=== PATIENT | male | born 1960 | race Caucasian/White ===

== ENCOUNTER 2020-09-27 20:58 | Emergency (ER) | payer MEDICAID ==
[~2020-09-27] VITALS: Ht 165.1 cm; Wt 77.1 kg
[2020-09-27 21:05] VITALS: BP 167/140
--- NOTE | 2020-09-27 21:10 | NUR ---
To ED bed 03.
--- NOTE | 2020-09-27 21:45 | NUR ---
59/M C/O LOWER BACK PAIN AND HIGH BLOOD PRESSURE FOR 3 DAYS. PT DENIES ANY HEADACHE, CHEST PAIN OR DIZZINESS. PT USES WALKER FOR AMBULATION AND HAS A R UPPER CHEST DIALYSIS PORT. PT CURRENTLY TAKES LABETALOL TID AND LISINOPRIL OD FOR BLOOD PRESSURE CONTROL. hx: ESRD on HD(tue,alexander,sat), HTN, DM NKDA
--- NOTE | 2020-09-27 21:45 | NUR ---
DR DE SOUZA AT BEDSIDE EXAMINING PATIENT
--- NOTE | 2020-09-27 22:32 | NUR ---
radiology at bedside
--- NOTE | 2020-09-27 22:34 | NUR ---
Leela freed in [facility] - 09/27/20 at 2234 by NAE X-Ray at bedside.
--- NOTE | 2020-09-27 22:36 | NUR ---
EKG PERFORMED AT BEDSIDE. EKG READS SINUS RHYTHM @ 78
--- NOTE | 2020-09-27 22:38 | NUR ---
20 G IV PLACED IN RT A/C - BLOOD LABS COLLECTED AND HANDED TO ANISHA FROM LAB.
[2020-09-27 22:47] LABS: BASOPHILS # (AUTO) 0.1 K/uL (0.00-0.22); BASOPHILS % (AUTO) 1.1 % (0.0-2.0); EOSINOPHILS # (AUTO) 0.2 K/uL (0-0.4); EOSINOPHILS % (AUTO) 2.3 % (0.0-4.0); HEMATOCRIT 31.2 % (36-52); HEMOGLOBIN 10.3 g/dL (12.0-18.0); LYMPHOCYTES # (AUTO) 1.8 K/uL (2.0-11.5); LYMPHOCYTES % (AUTO) 27.3 % (20.5-51.1); MEAN CORPUSCULAR HEMOGLOBIN 28 pg (27-31); MEAN CORPUSCULAR HGB CONC 33 g/dL (33-37); MEAN CORPUSCULAR VOLUME 84.1 fL (80-94); MONOCYTES # (AUTO) 0.6 K/uL (0.8-1.0); MONOCYTES % (AUTO) 8.9 % (1.7-9.3); NEUTROPHILS # (AUTO) 3.9 K/uL (1.8-7.7); NEUTROPHILS % (AUTO) 60.4 % (42.2-75.2); PLATELET COUNT (AUTO) 189 K/uL (140-450); RED BLOOD CELL COUNT(AUTO) 3.71 MIL/uL (4.20-6.10); RED CELL DISTRIBUTION WIDTH 16.7 % (11.6-13.7); WHITE BLOOD COUNT (AUTO) 6.5 K/uL (4.8-10.8)
--- NOTE | 2020-09-27 23:00 | NUR ---
MADE AWARE OF PT BP. NO ORDERS RECEIVED FOR NOW.
[2020-09-27 23:06] LABS: PROTHROMBIN TIME 9.9 secs (10.8-13.4)
[2020-09-27 23:17] LABS: ALBUMIN 3.5 g/dL (3.4-5.0); ANION GAP 16.8 (8-16); CARBON DIOXIDE 26.5 mmol/L (21-32); POTASSIUM 4.3 mmol/L (3.5-5.1); TOTAL BILIRUBIN 0.6 mg/dL (0.0-1.0)
[2020-09-27 23:18] LABS: CREATININE 9.5 mg/dL (0.6-1.3)
[2020-09-28] MEDS ORDERED: ACETAMINOPHEN EXTRA STRENGTH 500 MG TAB PO ONE (00:20)
[2020-09-28] MEDS ORDERED: LID5T TP (00:52)
[2020-09-28] MEDS ORDERED: ACET-10509 PO (00:52)
--- NOTE | 2020-09-28 01:10 | NUR ---
REPEAT EKG PERFORMED AT BEDSIDE. EKG READS SINUS RHYTHM @ 73
[2020-09-28 01:30] VITALS: BP 219/98
--- NOTE | 2020-09-28 01:30 | NUR ---
Patient discharged with v/s stable. Written and verbal after care instructions given and explained. Patient alert, oriented and verbalized understanding of instructions. Ambulatory with to car. All questions addressed prior to discharge. ID band AND IV ACCESS removed. Patient advised to follow up with PMD. Rx of LIDODERM PATCH, TYLENOL given. Patient educated on indication of medication including possible reaction and side effects. Opportunity to ask questions provided and answered.
== END 2020-09-28 01:30 | disposition home or self-care (01) ==
LOC: MED 20:58
DX: M54.9 Dorsalgia, unspecified (principal); E11.22 Type 2 diabetes mellitus with diabetic chronic kidney disease; I12.0 Hypertensive chronic kidney disease with stage 5 chronic kidney disease or end stage renal disease; N18.6 End stage renal disease; Z99.2 Dependence on renal dialysis; Z79.899 Other long term (current) drug therapy
CPT/HCPCS: 36415; 71045; 80053; 83735; 83880; 84484; 85025; 85610; 85730; 93005; 99291

== ENCOUNTER 2021-04-19 13:14 | Inpatient (IN) | payer MEDICAID, SELFPAY ==
[~2021-04-19] VITALS: Ht 167.6 cm; Wt 81.6 kg
[~2021-04-19 13:14] MED LIST: ACET-10509 PO; LID5T TP
[2021-04-19 14:28] VITALS: BP 141/73
--- NOTE | 2021-04-19 14:53 | NUR ---
02sat 92 % at this time. o2 canula2 lpm.
--- NOTE | 2021-04-19 15:46 | NUR ---
ECTRO SWAB, PCR SWAB, AND FLU SWAB COLLECTED, SENT TO LAB WITH [employer].
[2021-04-19 15:57] LABS: BASOPHILS # (AUTO) 0.1 K/uL (0.00-0.22); BASOPHILS % (AUTO) 1.1 % (0.0-2.0); EOSINOPHILS # (AUTO) 0.1 K/uL (0-0.4); EOSINOPHILS % (AUTO) 1.9 % (0.0-4.0); HEMOGLOBIN 9.7 g/dL (12.0-18.0); LYMPHOCYTES # (AUTO) 0.9 K/uL (2.0-11.5); LYMPHOCYTES % (AUTO) 15.5 % (20.5-51.1); MEAN CORPUSCULAR HEMOGLOBIN 28 pg (27-31); MEAN CORPUSCULAR HGB CONC 33 g/dL (33-37); MEAN CORPUSCULAR VOLUME 86.2 fL (80-94); MONOCYTES # (AUTO) 0.3 K/uL (0.8-1.0); MONOCYTES % (AUTO) 5.1 % (1.7-9.3); NEUTROPHILS # (AUTO) 4.5 K/uL (1.8-7.7); NEUTROPHILS % (AUTO) 76.4 % (42.2-75.2); PLATELET COUNT (AUTO) 153 K/uL (140-450); RED BLOOD CELL COUNT(AUTO) 3.48 MIL/uL (4.20-6.10); RED CELL DISTRIBUTION WIDTH 16.4 % (11.6-13.7); WHITE BLOOD COUNT (AUTO) 5.9 K/uL (4.8-10.8)
[2021-04-19 16:59] LABS: ANION GAP 23.3 (8-16); TOTAL BILIRUBIN 0.9 mg/dL (0.0-1.0)
[2021-04-19 17:44] LABS: CREATININE 13.9 mg/dL (0.6-1.3); POTASSIUM 7.3 mmol/L (3.5-5.1)
[2021-04-19] MEDS ORDERED: INSULIN REGULAR, HUMAN 100 UNIT/ML VIAL SUBQ ONE (17:45)
[2021-04-19] MEDS ORDERED: FUROSEMIDE 100 MG/10 ML VIAL IVP ONE (17:45)
[2021-04-19] MEDS ORDERED: DEXTROSE 50% 50 ML SYR IVP ONE (17:45)
[2021-04-19] MEDS ORDERED: ALBUTEROL HFA MDI 90 MCG/ACTUATION 8 GM INH ONE (17:45)
--- NOTE | 2021-04-19 17:47 | NUR ---
PER DR. MARRUFO PATIENT IS RECEIVE NEXT BED AVAILABLE
[2021-04-19] MEDS ORDERED: CALCIUM GLUCONATE 10% 1000 MG/10 ML VIAL IVP ONE (17:50)
[2021-04-19 18:15] LABS: MAGNESIUM 3.6 mg/dL (1.8-2.4)
--- NOTE | 2021-04-19 18:15 | NUR ---
PT MOVED FROM TENT 02 TO BED 13
[2021-04-19 18:17] LABS: PHOSPHORUS 10.1 mg/dL (2.5-4.9)
[2021-04-19] MEDS ORDERED: CALCIUM CHLORIDE 10% 100 MG/ML SYR IVP ONE (18:36)
--- NOTE | 2021-04-19 18:43 | NUR ---
60/M PRESENTS TO ED WITH C/O WORSENING COUGH, SOB, BODY ACHES, NAUSEA, CP AND FATIGUE X2 DAYS WORSENING TODAY. PATIENT STATES HE RECEIVES HEMODIALYSIS SUNDAY, SUNDAY AND SUNDAY BUT STATES HE MISSED HIS DIALYSIS TODAY DUE TO NOT FEELING WELL. PATIENTS FAMILY STATES THEY WERE MONITORING PATIENTS O2 AT HOME AND STATE HIS OXYGEN WOULD DROPS TO THE 60S WHEN MOVING AROUND. UPON ARRIVAL TO ED PATIENTS OXYGEN 88%, DENIES RECENT SICK CONTACTS. PATIENT REPORTS 5/10 PRESSURE LIKE CHEST PAIN, DENIES, N/V/D, SORE THROAT AT THIS TIME. PATIENT PLACE ON 2L NASAL CANULA, DR. MARRUFO AWARE OF PATIENT.
--- NOTE | 2021-04-19 20:59 | NUR ---
SPOKE WITH DIALYSIS NURSE CHERI, STATES SHE WILL LIKE TO BE CONTACTED WHEN PATIENT IS TX TO ICU OR IN A ROOM CAPABLE FOR DIALYSIS.
--- NOTE | 2021-04-19 21:12 | NUR ---
PT MOVED TO ER BED 1
--- NOTE | 2021-04-19 21:19 | NUR ---
NOTIFIED DIALYSIS NURSE CHERI THAT PATIENT IS NOW IN ER ROOM 1
[2021-04-19] MEDS ORDERED: SODIUM ZIRCONIUM CYCLOSILICATE 10 GM POWD.PACK PO SCH (21:25)
--- NOTE | 2021-04-19 22:03 | NUR ---
ASSUMED CARE AT THIS TIME.
--- NOTE | 2021-04-19 22:06 | NUR ---
PT SEEN LAYING SUPINE IN BED. VISIBLE CHEST RISE AND FALL NOTED. NAD. O2 SAT RANGING BETWEEN 95-98% ON 2L NC. NO INCREASED WORK OF BREATHING. ALL NEEDS MET AT THIS TIME. WILL CONTINUE TO MONITOR.
--- NOTE | 2021-04-19 22:45 | NUR ---
KG RAMIREZ AT BEDSIDE TO START STAT HEMODIALYSIS.
--- NOTE | 2021-04-20 06:00 | NUR ---
pt c/o general body pain. will reach out to admit physcian for PRN
--- NOTE | 2021-04-20 06:01 | NUR ---
reached out to Dr. Barclay for PRN pain medication and now a/w response.
--- NOTE | 2021-04-20 07:22 | NUR ---
report given to KG mariee. transfer of care at this time.
[2021-04-20 07:36] LABS: BASOPHILS # (AUTO) 0.1 K/uL (0.00-0.22); BASOPHILS % (AUTO) 0.9 % (0.0-2.0); EOSINOPHILS # (AUTO) 0.1 K/uL (0-0.4); EOSINOPHILS % (AUTO) 2.2 % (0.0-4.0); HEMATOCRIT 32.3 % (36-52); HEMOGLOBIN 10.7 g/dL (12.0-18.0); LYMPHOCYTES # (AUTO) 1.2 K/uL (2.0-11.5); LYMPHOCYTES % (AUTO) 19.1 % (20.5-51.1); MEAN CORPUSCULAR HEMOGLOBIN 28 pg (27-31); MEAN CORPUSCULAR HGB CONC 33 g/dL (33-37); MEAN CORPUSCULAR VOLUME 85.2 fL (80-94); MONOCYTES # (AUTO) 0.4 K/uL (0.8-1.0); MONOCYTES % (AUTO) 5.9 % (1.7-9.3); NEUTROPHILS # (AUTO) 4.4 K/uL (1.8-7.7); NEUTROPHILS % (AUTO) 71.9 % (42.2-75.2); PLATELET COUNT (AUTO) 168 K/uL (140-450); WHITE BLOOD COUNT (AUTO) 6.2 K/uL (4.8-10.8)
[2021-04-20 07:51] LABS: ANION GAP 18.7 (8-16); CARBON DIOXIDE 22.6 mmol/L (21-32); POTASSIUM 4.3 mmol/L (3.5-5.1)
--- NOTE | 2021-04-20 08:00 | NUR ---
[facility] BUN/NEON SIGN MAKER REPORTED TO MD CASTREJON AT THIS TIME. PT IS ESRD AND UNDERGOES HD AT THIS TIME.
[2021-04-20 08:01] LABS: CREATININE 9.4 mg/dL (0.6-1.3)
--- NOTE | 2021-04-20 08:39 | NUR ---
CALLED ERMD, PT IS HYPERTENSIVE AND HAS GEN BODY PAIN AT THIS TIME. NEW ORDERS NOTED AND CARRIED OUT.
[2021-04-20] MEDS ORDERED: MORPHINE SULFATE 2 MG/ML SYR IVP PRN ×2 (08:45→09:00)
[2021-04-20] MEDS ORDERED: MORPHINE SULFATE 4 MG/ML SYR IVP PRN (08:45)
[2021-04-20] MEDS ORDERED: hydrALAZINE 20 MG/ML VIAL IVP PRN ×2 (08:45→11:35)
[2021-04-20] MEDS ORDERED: hydrALAZINE 20 MG/ML VIAL ONE (08:57)
[2021-04-20] MEDS ORDERED: MAG SULF 2000 MG/WATER PREMIX 50 ML IV PRN (09:00)
[2021-04-20] MEDS ORDERED: ZOLPIDEM 5 MG TAB PO PRN (09:00)
[2021-04-20] MEDS ORDERED: HYDROcodone/APAP 5/325 MG 1 TAB TAB PO PRN (09:00)
[2021-04-20] MEDS ORDERED: LORazepam 2 MG/ML VIAL IM/IVP PRN (09:00)
[2021-04-20] MEDS ORDERED: ACETAMINOPHEN 325 MG TAB PO PRN (09:00)
[2021-04-20] MEDS ORDERED: ONDANSETRON 4 MG/2 ML VIAL IM/IVP PRN (09:00)
[2021-04-20 09:37] LABS: CHOL/HDL RATIO 2.1 (1-4.5); MAGNESIUM 2.8 mg/dL (1.8-2.4); PHOSPHORUS 6.6 mg/dL (2.5-4.9); THYROID STIMULATING HORMONE 0.72 uIU/mL (0.34-3.74)
[2021-04-20 09:40] LABS: PROTHROMBIN TIME 10.4 secs (10.8-13.4)
--- NOTE | 2021-04-20 10:10 | NUR ---
DR. GRACE AT BEDSIDE, PROFESSIONAL CASTER
[2021-04-20] MEDS ORDERED: DOCUSATE 100 MG/10 ML UDC PO PRN (10:30)
[2021-04-20] MEDS ORDERED: POTASSIUM CHLORIDE 20% 40 MEQ/15 ML UDC PO PRN (10:30)
--- NOTE | 2021-04-20 11:01 | NUR ---
PT COMPLAINING OF LEG PAIN. DR. DOE MADE AWARE, SAID WILL CHECK UP ON PT.
[2021-04-20] MEDS: NIFEdipine 60 MG TABER PO SCH (12:14)
[2021-04-20] MEDS: CALCIUM ACETATE 667 MG TAB PO SCH ×2 (12:15→18:01)
--- NOTE | 2021-04-20 12:57 | NUR ---
PATIENT ASLEEP IN BED. NO SIGNS OF DISTESS. WILL CONTINUE TO MONITOR.
--- NOTE | 2021-04-20 15:09 | NUR ---
blood pressure 183/83 and hr 76. hydralazine given per md order.
--- NOTE | 2021-04-20 15:55 | NUR ---
PATIENT HAS BEEN SCREENED AND CATEGORIZED MODERATE NUTRITION RISK. PATIENT WILL BE SEEN WITHIN 3-5 DAYS OF ADMISSION. / JAN CALDERON RD
--- NOTE | 2021-04-20 19:37 | NUR ---
REPORT GIVEN TO ANA SAUL. TRANSFER OF CARE DONE AT THIS TIME.
--- NOTE | 2021-04-20 19:45 | NUR ---
SITTING AT SIDE OF BED EATING DIET TRAY
--- NOTE | 2021-04-20 22:00 | NUR ---
RESTING IN BED WITH EYES CLOSED, RESPIRATIONS REGULAR AND UNLABORED.
[2021-04-21] MEDS ORDERED: DEXTROSE 50% 50 ML SYR IVP PRN (01:50)
[2021-04-21] MEDS ORDERED: INSULIN LISPRO SLIDING SCALE 100 UNITS/ML VIAL SUBQ PRN (01:50)
--- NOTE | 2021-04-21 02:00 | NUR ---
HAS BEEN AWAKE WITHOUT COMPLAINTS. SITTING AT SIDE OF BED TO VOID
--- NOTE | 2021-04-21 06:00 | NUR ---
AWAKE, HAS BEEN RESTING WITH EYES CLOSED. RESPIRATIONS REGULAR AND UNLABORED
[2021-04-21] MEDS: BLOOD GLUCOSE MONITORING 1 DEV DEV FS SCH ×4 (07:30→21:15)
--- NOTE | 2021-04-21 07:30 | NUR ---
REPORT RECEIVED FROM ANA SAUL FOR CONTINUITY OF CARE. PT IS A&OX4. ON 2L NASAL CANNULA. IV SITE OUT, CATHETER INTACT, GAUZE PLACED. SKIN WARM AND DRY, INTACT. WILL CONTINUE TO MONITOR.
[2021-04-21 08:23] LABS: BASOPHILS # (AUTO) 0.1 K/uL (0.00-0.22); BASOPHILS % (AUTO) 1.1 % (0.0-2.0); EOSINOPHILS # (AUTO) 0.1 K/uL (0-0.4); EOSINOPHILS % (AUTO) 2.3 % (0.0-4.0); HEMATOCRIT 30.3 % (36-52); HEMOGLOBIN 9.9 g/dL (12.0-18.0); LYMPHOCYTES # (AUTO) 1.3 K/uL (2.0-11.5); LYMPHOCYTES % (AUTO) 23.4 % (20.5-51.1); MEAN CORPUSCULAR HEMOGLOBIN 28 pg (27-31); MEAN CORPUSCULAR HGB CONC 33 g/dL (33-37); MEAN CORPUSCULAR VOLUME 86.2 fL (80-94); MONOCYTES # (AUTO) 0.5 K/uL (0.8-1.0); MONOCYTES % (AUTO) 8.5 % (1.7-9.3); NEUTROPHILS # (AUTO) 3.5 K/uL (1.8-7.7); NEUTROPHILS % (AUTO) 64.7 % (42.2-75.2); PLATELET COUNT (AUTO) 130 K/uL (140-450); RED BLOOD CELL COUNT(AUTO) 3.52 MIL/uL (4.20-6.10); RED CELL DISTRIBUTION WIDTH 16.3 % (11.6-13.7); WHITE BLOOD COUNT (AUTO) 5.4 K/uL (4.8-10.8)
[2021-04-21 09:07] LABS: T4 (THYROXINE) 7.3 ug/dL (4.5-12.0)
[2021-04-21 09:18] LABS: ANION GAP 21.3 (8-16); CARBON DIOXIDE 22.2 mmol/L (21-32); POTASSIUM 5.5 mmol/L (3.5-5.1)
[2021-04-21] MEDS: CALCIUM ACETATE 667 MG TAB PO SCH ×3 (09:26→17:31)
[2021-04-21] MEDS: NIFEdipine 60 MG TABER PO SCH (09:27)
--- NOTE | 2021-04-21 09:30 | NUR ---
PT EATING BREAKFAST TRAY
[2021-04-21 09:47] LABS: CREATININE 11.5 mg/dL (0.6-1.3)
[2021-04-21 10:04] LABS: PHOSPHORUS 9.2 mg/dL (2.5-4.9)
--- NOTE | 2021-04-21 12:40 | NUR ---
DR ELLIOTT AT BEDSIDE EXAMINING PT
--- NOTE | 2021-04-21 13:30 | NUR ---
PT EATING LUNCH TRAY
--- NOTE | 2021-04-21 15:49 | NUR ---
DIALYSIS NURSE AT BEDSIDE
--- NOTE | 2021-04-21 18:12 | NUR ---
PT PROVIDED WITH DINNER TRAY
--- NOTE | 2021-04-21 19:13 | NUR ---
PER HEAD OPERATOR, 1000 ML OUTPUT.
--- NOTE | 2021-04-21 19:24 | NUR ---
Pt report given to ANA SAUL. Transfer of care at this time.
--- NOTE | 2021-04-21 19:45 | NUR ---
AWAKE, SITTING ON SIDE OF BED. ATE 100% OF DIET TRAY
--- NOTE | 2021-04-21 22:00 | NUR ---
AWAKENED WITH EASE FOR VITAL SIGNS. VOICES NO COMPLAINTS
[2021-04-22] MEDS ORDERED: hydrALAZINE 20 MG/ML VIAL IVP PRN ×2 (02:30→08:45)
--- NOTE | 2021-04-22 02:30 | NUR ---
BP HIGH. CALL TO DR KLINE. ORDERS [id number]
[2021-04-22 07:12] LABS: BASOPHILS % (AUTO) 0.8 % (0.0-2.0); EOSINOPHILS # (AUTO) 0.1 K/uL (0-0.4); EOSINOPHILS % (AUTO) 2.5 % (0.0-4.0); HEMATOCRIT 30.6 % (36-52); HEMOGLOBIN 10.1 g/dL (12.0-18.0); LYMPHOCYTES # (AUTO) 1.2 K/uL (2.0-11.5); MEAN CORPUSCULAR HEMOGLOBIN 28 pg (27-31); MEAN CORPUSCULAR HGB CONC 33 g/dL (33-37); MEAN CORPUSCULAR VOLUME 84.9 fL (80-94); MONOCYTES # (AUTO) 0.5 K/uL (0.8-1.0); MONOCYTES % (AUTO) 8.1 % (1.7-9.3); NEUTROPHILS % (AUTO) 68.6 % (42.2-75.2); PLATELET COUNT (AUTO) 143 K/uL (140-450); WHITE BLOOD COUNT (AUTO) 5.8 K/uL (4.8-10.8)
[2021-04-22] MEDS: BLOOD GLUCOSE MONITORING 1 DEV DEV FS SCH ×4 (07:30→21:19)
--- NOTE | 2021-04-22 07:30 | NUR ---
REPORT RECEIVED FROM ANA SAUL FOR CONTINUITY OF CARE. PT IS A&OX4. ON 2L NASAL CANNULA. SR ON MONITOR. IV SITE LT AC 22G AND LT HAND 20G BOTH INTACT, PATENT, GOOD BLOOD RETURN. [facility] MARJ CATH IN PLACE. SKIN WARM AND DRY. SAFETY PRECAUTIONS IN PLACE. CALL LIGHT WITHIN REACH. WILL CONTINUE TO MONITOR.
[2021-04-22 07:37] LABS: ANION GAP 17.2 (8-16); CARBON DIOXIDE 26.4 mmol/L (21-32); POTASSIUM 4.6 mmol/L (3.5-5.1)
[2021-04-22 07:41] LABS: MAGNESIUM 2.7 mg/dL (1.8-2.4); PHOSPHORUS 6.9 mg/dL (2.5-4.9)
[2021-04-22 08:01] LABS: CREATININE 8.5 mg/dL (0.6-1.3)
[2021-04-22] MEDS: VIT-B COMP/VIT-C/FOLIC ACID 1 TAB PO SCH (08:05)
[2021-04-22] MEDS: NIFEdipine 60 MG TABER PO SCH (08:05)
[2021-04-22] MEDS: CALCIUM ACETATE 667 MG TAB PO SCH ×3 (08:05→16:37)
--- NOTE | 2021-04-22 08:28 | NUR ---
PT EATING BREAKFAST TRAY
--- NOTE | 2021-04-22 10:30 | NUR ---
Pt on 2L Nasal Cannula. Patient has eyes closed, in bed. Vital Signs within normal limits. Respirations even and unlabored. Will to continue to monitor.
[2021-04-22] MEDS: METOPROLOL 25 MG TAB PO SCH ×2 (10:55→21:20)
--- NOTE | 2021-04-22 12:00 | NUR ---
PT PROVIDED WITH LUNCH TRAY
--- NOTE | 2021-04-22 13:04 | NUR ---
CALLED [facility], MADE AWARE HEMODIALYSIS ORDERED FOR 04/23.
--- NOTE | 2021-04-22 15:30 | NUR ---
Patient has eyes closed, comfortably in bed. Vital Signs within normal limits. Respirations even and unlabored. on 2L Nasal Cannula. will continue to monitor.
--- NOTE | 2021-04-22 17:45 | NUR ---
Patient has eyes closed, comfortably in bed. Vital Signs within normal limits. Respirations even and unlabored. on 2L Nasal Cannula. will continue to monitor.
--- NOTE | 2021-04-22 19:27 | NUR ---
Pt report given to ANA SAUL. Transfer of care at this time.
--- NOTE | 2021-04-22 20:00 | NUR ---
SITTING AT SIDE OF BED EATING DIET TRAY, TOLERATED WELL.
[2021-04-22] MEDS ORDERED: METOPROLOL 50 MG TAB PO SCH (21:00)
--- NOTE | 2021-04-23 | NUR ---
RESTING IN BED 1 WITH EYES CLOSED. RESPIRATIONS REGULAR AND UNLABORED. O2 CONTINUES AT 2L N/C
--- NOTE | 2021-04-23 00:15 | NUR ---
BP ELEVATED. HYDRALAZINE GIVEN OEDERED
--- NOTE | 2021-04-23 04:00 | NUR ---
RESTING QUIETLY SITTING ON SIDE OF BED
--- NOTE | 2021-04-23 06:00 | NUR ---
Patient appears to be resting comfortably in bed. Vital Signs within normal limits. Respirations even and unlabored.
--- NOTE | 2021-04-23 08:00 | NUR ---
Pt AOX4, able to make all needs known and follow commands, resp even and unlabored on 2LPM VNC. Lung sounds are clear/diminished. No cough noted at this time. Denies N/V/D/CP at this timed. abd is soft and non-tender. Radial pulses are equal bilat, weak pedal pulses noted. RUC perma cath intact, no s/sx of bleeding at this time. All safety measures in place, call light in reach. Denies pain at this time.
[2021-04-23] MEDS: BLOOD GLUCOSE MONITORING 1 DEV DEV FS SCH ×2 (08:49→11:55)
[2021-04-23] MEDS: CALCIUM ACETATE 667 MG TAB PO SCH ×2 (08:50→13:30)
[2021-04-23] MEDS: METOPROLOL 25 MG TAB PO SCH (08:50)
[2021-04-23] MEDS: VIT-B COMP/VIT-C/FOLIC ACID 1 TAB PO SCH (08:51)
--- NOTE | 2021-04-23 08:55 | NUR ---
Charlotte SAUL at bedside to perform H/D at this time.
[2021-04-23] MEDS ORDERED: NIFEdipine 90 MG TABER PO SCH (09:00)
--- NOTE | 2021-04-23 09:00 | NUR ---
PT PLACED ON RA AND AMBULATED. WELL TOLERATED AT THIS TIME. 02 SATURATION IS 94% AT THIS TIME.
--- NOTE | 2021-04-23 10:15 | NUR ---
Heparin 10,000 U handed to RN H/D Porter. Medication to be administered by H/D nurse at this time.
[2021-04-23 11:22] LABS: BASOPHILS % (AUTO) 0.5 % (0.0-2.0); EOSINOPHILS # (AUTO) 0.2 K/uL (0-0.4); EOSINOPHILS % (AUTO) 2.2 % (0.0-4.0); HEMATOCRIT 31.9 % (36-52); HEMOGLOBIN 10.3 g/dL (12.0-18.0); LYMPHOCYTES # (AUTO) 1.2 K/uL (2.0-11.5); LYMPHOCYTES % (AUTO) 16.6 % (20.5-51.1); MEAN CORPUSCULAR HEMOGLOBIN 28 pg (27-31); MEAN CORPUSCULAR HGB CONC 32 g/dL (33-37); MEAN CORPUSCULAR VOLUME 86.1 fL (80-94); MONOCYTES # (AUTO) 0.4 K/uL (0.8-1.0); MONOCYTES % (AUTO) 5.1 % (1.7-9.3); NEUTROPHILS # (AUTO) 5.5 K/uL (1.8-7.7); NEUTROPHILS % (AUTO) 75.6 % (42.2-75.2); PLATELET COUNT (AUTO) 132 K/uL (140-450); RED BLOOD CELL COUNT(AUTO) 3.71 MIL/uL (4.20-6.10); RED CELL DISTRIBUTION WIDTH 15.6 % (11.6-13.7); WHITE BLOOD COUNT (AUTO) 7.2 K/uL (4.8-10.8)
[2021-04-23 11:46] LABS: ANION GAP 19.6 (8-16); CARBON DIOXIDE 24.6 mmol/L (21-32); POTASSIUM 5.2 mmol/L (3.5-5.1)
[2021-04-23 12:09] LABS: PHOSPHORUS 8.9 mg/dL (2.5-4.9)
--- NOTE | 2021-04-23 12:17 | NUR ---
Per Porter RN, 3L were removed from pt at this time.
[2021-04-23 12:31] LABS: CREATININE 10.8 mg/dL (0.6-1.3)
[2021-04-23] MEDS ORDERED: METO25TA PO (12:56)
[2021-04-23] MEDS ORDERED: NIFE90TE63 PO (12:56)
[2021-04-23 13:51] VITALS: BP 185/71
[2021-04-23 14:10] VITALS: BP 146/81
--- NOTE | 2021-04-23 14:10 | NUR ---
Patient discharged with v/s stable. Written and verbal after care instructions given and explained. Patient verbalized understanding. Wheel Chair Assisted to home. All questions addressed prior to discharge. Advised to follow up with PMD.
[2021-04-23] MEDS ORDERED: LABETALOL 200 MG TAB PO SCH (21:00)
== END 2021-04-23 14:10 | disposition home or self-care (01) | DRG 133 ==
LOC: MED 13:14 → MTU 21:37
PROC: 5A1D70Z Performance of Urinary Filtration, Intermittent, Less than 6 Hours Per Day (ICD-10-PCS; principal; 2021-04-19)
PROC: 5A1D70Z Performance of Urinary Filtration, Intermittent, Less than 6 Hours Per Day (ICD-10-PCS; 2021-04-20)
PROC: 5A1D70Z Performance of Urinary Filtration, Intermittent, Less than 6 Hours Per Day (ICD-10-PCS; 2021-04-21)
PROC: 5A1D70Z Performance of Urinary Filtration, Intermittent, Less than 6 Hours Per Day (ICD-10-PCS; 2021-04-22)
DX: J96.01 Acute respiratory failure with hypoxia (principal); N17.0 Acute kidney failure with tubular necrosis; I50.43 Acute on chronic combined systolic (congestive) and diastolic (congestive) heart failure; E83.39 Other disorders of phosphorus metabolism; D63.8 Anemia in other chronic diseases classified elsewhere; E83.41 Hypermagnesemia; N18.6 End stage renal disease; I13.2 Hypertensive heart and chronic kidney disease with heart failure and with stage 5 chronic kidney disease, or end stage renal disease; E87.5 Hyperkalemia; E83.42 Hypomagnesemia; Z20.822 Contact with and (suspected) exposure to COVID-19; E11.22 Type 2 diabetes mellitus with diabetic chronic kidney disease; Z79.1 Long term (current) use of non-steroidal anti-inflammatories (NSAID); Z79.899 Other long term (current) drug therapy; Z99.2 Dependence on renal dialysis; Z87.891 Personal history of nicotine dependence
CPT/HCPCS: 36415; 71045; 80048; 80053; 82150; 83036; 83605; 83690; 83735; 83880; 84100; 84134; 84436; 84443; 84484; 85025; 85610; 85730; 87040; 93005; 94664; 96372; 96374; 96375; 99291; J0360; J0610; J1644; J1815; J1940; J2270; U0003

== ENCOUNTER 2021-04-26 12:44 | Inpatient (IN) | payer MEDICAID, SELFPAY ==
[~2021-04-26] VITALS: Ht 172.7 cm; Wt 72.6 kg
[2021-04-26] MEDS: SODIUM ZIRCONIUM CYCLOSILICATE 10 GM POWD.PACK PO SCH (03:00)
[~2021-04-26 12:44] MED LIST changes: +METO25TA PO; +NIFE90TE63 PO
[2021-04-26 14:24] VITALS: BP 161/65
[2021-04-26 15:44] LABS: TOTAL BILIRUBIN 0.7 mg/dL (0.0-1.0)
[2021-04-26 15:50] LABS: CREATININE 13.9 mg/dL (0.6-1.3)
[2021-04-26 15:57] LABS: PROTHROMBIN TIME 10.4 secs (10.8-13.4)
[2021-04-26] MEDS ORDERED: INSULIN REGULAR, HUMAN 100 UNIT/ML VIAL IVP ONE ×2 (16:40→23:45)
[2021-04-26] MEDS ORDERED: FUROSEMIDE 100 MG/10 ML VIAL IVP ONE (16:40)
[2021-04-26] MEDS ORDERED: DEXTROSE 50% 50 ML SYR IVP ONE ×6 (16:40→23:45)
--- NOTE | 2021-04-26 19:23 | NUR ---
ASSUMED PT CARE, PT HERE FOR SOB. PT MISSED HIS DIALYSIS, PER REPORT PT IS A FREQUENT FLYER. IN ASSESMENT PT NOTED TO BE TRIPODING ON O2 AT 3L NC SATURATING AT 94%, IV LINE STARTED ON THE RIGHT HAND.
[2021-04-26 20:09] LABS: BASOPHILS % (AUTO) 0.7 % (0.0-2.0); EOSINOPHILS # (AUTO) 0.1 K/uL (0-0.4); EOSINOPHILS % (AUTO) 1.8 % (0.0-4.0); HEMATOCRIT 27.7 % (36-52); HEMOGLOBIN 9.1 g/dL (12.0-18.0); LYMPHOCYTES # (AUTO) 0.8 K/uL (2.0-11.5); LYMPHOCYTES % (AUTO) 12.4 % (20.5-51.1); MEAN CORPUSCULAR HEMOGLOBIN 28 pg (27-31); MEAN CORPUSCULAR HGB CONC 33 g/dL (33-37); MEAN CORPUSCULAR VOLUME 85.1 fL (80-94); MONOCYTES # (AUTO) 0.4 K/uL (0.8-1.0); MONOCYTES % (AUTO) 5.7 % (1.7-9.3); NEUTROPHILS % (AUTO) 79.4 % (42.2-75.2); PLATELET COUNT (AUTO) 109 K/uL (140-450); RED BLOOD CELL COUNT(AUTO) 3.25 MIL/uL (4.20-6.10); RED CELL DISTRIBUTION WIDTH 15.4 % (11.6-13.7); WHITE BLOOD COUNT (AUTO) 6.3 K/uL (4.8-10.8)
[2021-04-26] MEDS ORDERED: FUROSEMIDE 40 MG/4 ML VIAL IVP ONE (21:29)
[2021-04-26 22:52] LABS: ANION GAP 25.9 (8-16); CARBON DIOXIDE 19.7 mmol/L (21-32)
[2021-04-26] MEDS ORDERED: ACETAMINOPHEN 325 MG TAB PO PRN (23:00)
[2021-04-26] MEDS ORDERED: MAGNESIUM OXIDE 400 MG TAB PO PRN (23:00)
[2021-04-26] MEDS ORDERED: MORPHINE SULFATE 2 MG/ML SYR IVP PRN (23:00)
[2021-04-26] MEDS ORDERED: HYDROcodone/APAP 5/325 MG 1 TAB TAB PO PRN (23:00)
[2021-04-26] MEDS ORDERED: DOCUSATE SODIUM 100 MG GELCAP PO PRN (23:00)
[2021-04-26] MEDS ORDERED: ONDANSETRON 4 MG/2 ML VIAL IM/IVP PRN (23:00)
[2021-04-26] MEDS ORDERED: SODIUM PHOS / POTASSIUM PHOS 1 PKT PDR PO PRN (23:00)
[2021-04-26 23:41] LABS: CREATININE 14.3 mg/dL (0.6-1.3); POTASSIUM 6.6 mmol/L (3.5-5.1)
--- NOTE | 2021-04-27 01:40 | NUR ---
HAND-OFF GIVEN TO DEBO RN
--- NOTE | 2021-04-27 01:52 | NUR ---
PATIENT FEELS PRESSURE IN AIRWAY MAKING IT DIFFICULT TO BREATHE
--- NOTE | 2021-04-27 04:20 | NUR ---
DIALYSIS DAYS ARE SUNDAY, SUNDAY, AND SUNDAY. PATIENT MISSED DIALYSIS YESTERDAY. PATIENT TRIPODING AND FEELS SOB AND DIFFICULTY CATCHING BREATH.
[2021-04-27 05:05] LABS: MAGNESIUM 3.5 mg/dL (1.8-2.4)
[2021-04-27 05:06] LABS: PHOSPHORUS 11.3 mg/dL (2.5-4.9)
[2021-04-27] MEDS ORDERED: INSULIN REGULAR, HUMAN 100 UNIT/ML VIAL IVP SCH (05:50)
[2021-04-27] MEDS ORDERED: DEXTROSE 50% 50 ML SYR IVP SCH (05:50)
--- NOTE | 2021-04-27 05:53 | NUR ---
PATIENT MOVED TO BED 1 FOR DIALYSIS
[2021-04-27] MEDS: PANTOPRAZOLE 40 MG TABEC PO SCH (06:42)
--- NOTE | 2021-04-27 07:28 | NUR ---
Pt report given to Oleg SAUL. Transfer of care at this time.
--- NOTE | 2021-04-27 07:28 | NUR ---
Report and continuation of care received from KG Crain.
--- NOTE | 2021-04-27 07:30 | NUR ---
Patient sitting upright with both eyes open with legs resting on side of bed. quality assurance monitor in place. Bed locked in lowest position, side rails x 2. 3L via NC in place.
--- NOTE | 2021-04-27 07:32 | NUR ---
Nurse Porter at bedside
[2021-04-27 07:43] LABS: BASOPHILS # (AUTO) 0.1 K/uL (0.00-0.22); BASOPHILS % (AUTO) 0.8 % (0.0-2.0); EOSINOPHILS % (AUTO) 0.6 % (0.0-4.0); HEMATOCRIT 30.1 % (36-52); HEMOGLOBIN 9.9 g/dL (12.0-18.0); LYMPHOCYTES # (AUTO) 0.8 K/uL (2.0-11.5); LYMPHOCYTES % (AUTO) 10.4 % (20.5-51.1); MEAN CORPUSCULAR HEMOGLOBIN 28 pg (27-31); MEAN CORPUSCULAR HGB CONC 33 g/dL (33-37); MEAN CORPUSCULAR VOLUME 85.4 fL (80-94); MONOCYTES # (AUTO) 0.4 K/uL (0.8-1.0); MONOCYTES % (AUTO) 5.4 % (1.7-9.3); NEUTROPHILS # (AUTO) 6.3 K/uL (1.8-7.7); NEUTROPHILS % (AUTO) 82.8 % (42.2-75.2); PLATELET COUNT (AUTO) 119 K/uL (140-450); RED BLOOD CELL COUNT(AUTO) 3.52 MIL/uL (4.20-6.10); RED CELL DISTRIBUTION WIDTH 15.4 % (11.6-13.7); WHITE BLOOD COUNT (AUTO) 7.6 K/uL (4.8-10.8)
--- NOTE | 2021-04-27 08:43 | NUR ---
JUANA OLIVARES GAVE TO DIAMOND DIE POLISHER.
[2021-04-27] MEDS ORDERED: METOPROLOL 25 MG TAB PO SCH (09:00)
[2021-04-27 09:31] LABS: ANION GAP 26.1 (8-16); CARBON DIOXIDE 22.5 mmol/L (21-32)
[2021-04-27 09:42] LABS: CREATININE 15.1 mg/dL (0.6-1.3); POTASSIUM 7.6 mmol/L (3.5-5.1)
--- NOTE | 2021-04-27 10:00 | NUR ---
0900 MEDICATIONS DELAYED DUE TO DIALYSIS. [facility] STATES TO WITHHOLD MEDS UNTIL COMPLETED.
[2021-04-27] MEDS: SODIUM ZIRCONIUM CYCLOSILICATE 10 GM POWD.PACK PO SCH (11:40)
[2021-04-27] MEDS: NIFEdipine 90 MG TABER PO SCH (11:40)
--- NOTE | 2021-04-27 14:03 | NUR ---
Dr. Parker is evaluating patient at bedside
[2021-04-27] MEDS: LABETALOL 200 MG TAB PO SCH (15:45)
--- NOTE | 2021-04-27 16:05 | NUR ---
Patient resting upright in position of comfort. water cup provided. felt finisher in place. Bed locked in lowest position, side rails x 2.
--- NOTE | 2021-04-27 16:26 | NUR ---
PATIENT HAS BEEN SCREENED AND CATEGORIZED MODERATE NUTRITION RISK. PATIENT WILL BE SEEN WITHIN 3-5 DAYS OF ADMISSION. JAN CALDERON RD
--- NOTE | 2021-04-27 19:26 | NUR ---
Report and transfer of care endorsed to KG Vicente.
--- NOTE | 2021-04-27 22:05 | NUR ---
PT EATING AT BEDSIDE. PT NOT COMPIANT WITH USING OXYGEN CANNULA. HAD TO REMIND PATIENT TO PUT BACK ON .
--- NOTE | 2021-04-28 | NUR ---
O2 SAT - 95% ON 02 AT 2 LITERS VIA N/C, ON ROOM AIR 91%. NO RESPIRATORY DISTRESS NOTED.
[2021-04-28] MEDS: SODIUM ZIRCONIUM CYCLOSILICATE 10 GM POWD.PACK PO SCH ×3 (01:15→21:35)
[2021-04-28] MEDS: LABETALOL 200 MG TAB PO SCH ×3 (01:16→21:35)
[2021-04-28] MEDS ORDERED: DEXTROSE 50% 50 ML SYR IVP PRN (01:45)
[2021-04-28] MEDS ORDERED: INSULIN LISPRO SLIDING SCALE 100 UNITS/ML VIAL SUBQ PRN (01:45)
[2021-04-28] MEDS ORDERED: ALBUTEROL SULFATE/IPRATROPIU 3 ML SOL IH PRN (01:50)
--- NOTE | 2021-04-28 03:36 | NUR ---
Patient appears to be resting comfortably in bed. Vital Signs within normal limits. Respirations even and unlabored.
[2021-04-28 04:15] VITALS: BP 155/63
--- NOTE | 2021-04-28 04:20 | NUR ---
RECEIVED PT FROM SONJA WEBER VIA [facility] FOR CONTINUITY OF CARE. PT IS AWAKE AND ORIENTED,SERBIAN SPEAKING. ON 6L O2 VIA NC. PT AFEBRILE WITH VS FOLLOWS. BP 155/63, AK 67, RR 18, T 98.6, O2 SAT 96%. PT NO SIGN OF DISTRESS. ORIENTED TO ROOM AND CALL LIGHT. BED IN LOW LOCKED POSITION. MRSA SWAB DONE.ALL SAFETY MEASURES IN PLACE. CALL LIGHT WITHIN REACH. WILL CONTINUE TO MONITOR.
[2021-04-28] MEDS: PANTOPRAZOLE 40 MG TABEC PO SCH (06:23)
--- NOTE | 2021-04-28 06:24 | NUR ---
SCHEDULED MEDICATIONS GIVEN. PT TOLERATED WELL. NO S/SX OF DISTRESS.CALL LIGHT WITHIN REACH. WILL CONTINUE TO MONITOR.
[2021-04-28] MEDS: BLOOD GLUCOSE MONITORING 1 DEV DEV FS SCH ×4 (06:48→21:00)
[2021-04-28 07:19] LABS: BASOPHILS % (AUTO) 0.8 % (0.0-2.0); EOSINOPHILS # (AUTO) 0.1 K/uL (0-0.4); EOSINOPHILS % (AUTO) 1.9 % (0.0-4.0); HEMATOCRIT 25.6 % (36-52); HEMOGLOBIN 8.6 g/dL (12.0-18.0); LYMPHOCYTES % (AUTO) 16.9 % (20.5-51.1); MEAN CORPUSCULAR HEMOGLOBIN 28 pg (27-31); MEAN CORPUSCULAR HGB CONC 34 g/dL (33-37); MEAN CORPUSCULAR VOLUME 84.4 fL (80-94); MONOCYTES # (AUTO) 0.4 K/uL (0.8-1.0); NEUTROPHILS # (AUTO) 4.3 K/uL (1.8-7.7); NEUTROPHILS % (AUTO) 73.4 % (42.2-75.2); PLATELET COUNT (AUTO) 104 K/uL (140-450); RED BLOOD CELL COUNT(AUTO) 3.03 MIL/uL (4.20-6.10); WHITE BLOOD COUNT (AUTO) 5.8 K/uL (4.8-10.8)
--- NOTE | 2021-04-28 07:30 | NUR ---
PT ENDORSED TO AM SHIFT NURSE FOR CONTINUITY OF CARE. PT IS STABLE.
[2021-04-28 08:00] VITALS: BP 190/86
--- NOTE | 2021-04-28 08:00 | NUR ---
RECEIVED REPORT FROM ASBESTOS REMOVAL SUPERVISOR FOR CONTINUITY OF CARE. PATIENT ALERT AWAKE ORIENTED X4, NOT IN ANY DISTRESS NOTED. WITH HEPLOCK ON THE RIGHT HAND GAUGE 20 DRY AND INTACT. WITH LEFT WRIST HEPLOCK GAUGE 24 DRY AND INTACT. WITH RIGHT CHEST PERM A CATH INTACT. SCHEDULE FOR DIALYSIS TODAY. ON 5L NC. BED IN LOW POSITION, CALL LIGHT WITHIN REACH. WILL CONTINUE TO MONITOR.
[2021-04-28] MEDS: NIFEdipine 90 MG TABER PO SCH (08:26)
[2021-04-28 08:48] LABS: ANION GAP 21.5 (8-16); CARBON DIOXIDE 25.6 mmol/L (21-32); POTASSIUM 5.1 mmol/L (3.5-5.1)
--- NOTE | 2021-04-28 09:00 | NUR ---
CALLED CHERI AND NOTIFIED HER THAT PATIENT HAS SCHEDULE DIALYSIS TODAY. WILL CONTINUE TO MONITOR.
[2021-04-28 09:21] LABS: CREATININE 11.2 mg/dL (0.6-1.3)
[2021-04-28 12:00] VITALS: BP 146/68
[2021-04-28] MEDS: CALCIUM ACETATE 667 MG TAB PO SCH ×2 (12:47→17:18)
[2021-04-28 17:00] VITALS: BP 169/87
--- NOTE | 2021-04-28 19:22 | NUR ---
DIALYSIS DONE WITH 3.5L OUTPUT. PATIENT IN STABLE CONDITION. RESTING IN BED. REPORT GIVEN TO THE A P SUPERVISOR FOR CONTINUITY OF CARE.
--- NOTE | 2021-04-28 19:23 | NUR ---
RECD. RESTING IN BED, AWAKE, A/OX4. RESPIRATION EVEN AND UNLABORED. RIGHT CHEST PERMA CATH INTACT. IV SALINE LOCK AT THE RIGHT HAND G20, PATENT AND INTACT. ON AT 2 LITERS VIA N/C, 02 SATE 95%. ABLE TO AMBULATE TO THE BY HIMSELF. DENIES PAIN 0/
[2021-04-28 20:00] VITALS: BP 187/85
--- NOTE | 2021-04-28 20:00 | NUR ---
Patient's Plan of Care was discussed and reviewed with SONJA GUZMAN.
--- NOTE | 2021-04-28 21:35 | NUR ---
B9 - 187/85, MEDICATED WITH TRANDATE PER MD ORDER.
--- NOTE | 2021-04-28 22:35 | NUR ---
BP CHECKED - 158/90, HR - 76. NO COMPLAINT OF PAIN 0/10.
[2021-04-29] VITALS: BP 158/90
--- NOTE | 2021-04-29 02:00 | NUR ---
SLEEPING COMFORTABLY IN BED. RESPIRATION EVEN AND UNLABORED.
--- NOTE | 2021-04-29 04:00 | NUR ---
WARM BLANKET GIVEN REQUESTED. NO SOB NOTED.
[2021-04-29] MEDS: PANTOPRAZOLE 40 MG TABEC PO SCH (06:01)
--- NOTE | 2021-04-29 07:00 | NUR ---
RESPIRATORY STATUS REMAIN STABLE. WILL ENDORSE TO AM SHIFT NURSE FOR CONTINUITY OF CARE.
[2021-04-29 07:35] LABS: ANION GAP 17.7 (8-16); BASOPHILS % (AUTO) 0.9 % (0.0-2.0); CARBON DIOXIDE 29.7 mmol/L (21-32); EOSINOPHILS # (AUTO) 0.1 K/uL (0-0.4); EOSINOPHILS % (AUTO) 2.3 % (0.0-4.0); HEMOGLOBIN 8.9 g/dL (12.0-18.0); LYMPHOCYTES # (AUTO) 1.3 K/uL (2.0-11.5); LYMPHOCYTES % (AUTO) 23.8 % (20.5-51.1); MEAN CORPUSCULAR HEMOGLOBIN 28 pg (27-31); MEAN CORPUSCULAR HGB CONC 33 g/dL (33-37); MEAN CORPUSCULAR VOLUME 85.5 fL (80-94); MONOCYTES # (AUTO) 0.4 K/uL (0.8-1.0); MONOCYTES % (AUTO) 8.3 % (1.7-9.3); NEUTROPHILS # (AUTO) 3.5 K/uL (1.8-7.7); NEUTROPHILS % (AUTO) 64.7 % (42.2-75.2); PLATELET COUNT (AUTO) 111 K/uL (140-450); POTASSIUM 4.4 mmol/L (3.5-5.1); RED BLOOD CELL COUNT(AUTO) 3.16 MIL/uL (4.20-6.10); RED CELL DISTRIBUTION WIDTH 15.2 % (11.6-13.7); WHITE BLOOD COUNT (AUTO) 5.4 K/uL (4.8-10.8)
[2021-04-29 07:40] LABS: CREATININE 8.8 mg/dL (0.6-1.3)
[2021-04-29] MEDS: BLOOD GLUCOSE MONITORING 1 DEV DEV FS SCH ×3 (07:41→16:30)
[2021-04-29 08:00] VITALS: BP 185/93
--- NOTE | 2021-04-29 08:00 | NUR ---
RECEIVED REPORT FROM INSTRUCTOR PRODUCT INSPECTION FOR CONTINUITY OF CARE. PATIENT ALERT AWAKE ORIENTED X4, NOT IN ANY DISTRESS NOTED. ON 2L NC SATURATION 96%. DENIES PAIN. WITH HEPLOCK GAUGE 20 ON THE RIGHT HAND AND LEFT WRIST DRY AND INTACT. BED IN LOW POSITION, CALL LIGHT WITHIN REACH. NEEDS ATTENDED. WILL CONTINUE TO MONITOR.
[2021-04-29] MEDS: SODIUM ZIRCONIUM CYCLOSILICATE 10 GM POWD.PACK PO SCH (08:23)
[2021-04-29] MEDS: CALCIUM ACETATE 667 MG TAB PO SCH ×3 (08:23→17:40)
[2021-04-29] MEDS: LABETALOL 200 MG TAB PO SCH (08:24)
[2021-04-29] MEDS: NIFEdipine 90 MG TABER PO SCH (08:24)
[2021-04-29] MEDS ORDERED: VIT-B COMP/VIT-C/FOLIC ACID 1 TAB PO SCH (09:00)
--- NOTE | 2021-04-29 10:30 | NUR ---
WITH ORDER FOR DC, IF OK WITH DR. ELLIOTT. PAGED DR. ELLIOTT AND HE SAID NO NEED FOR DIALYSIS TODAY BUT MAKE SURE THAT PATIENT WILL FOLLOW UP WITH OUT PATIENT HD CENTER. CM MADE AWARE. WILL CONTINUE TO MONITOR.
[2021-04-29] MEDS ORDERED: hydrALAZINE 25 MG TAB PO PRN (10:35)
[2021-04-29] MEDS ORDERED: TRA200 PO (10:38)
[2021-04-29] MEDS ORDERED: CALC667C3 PO (10:38)
[2021-04-29] MEDS ORDERED: NIFE90TE63 PO (10:38)
--- NOTE | 2021-04-29 13:13 | NUR ---
CALLED STEVE ROSEN, HE SAID HE WILL FINAL INSPECTION SUPERVISOR PATIENT AROUND 5 PM. DISCHARGE INSTRUCTION GIVEN TO HIM, HE SPEAKS NEPALI AND TOLD HIM THAT HE NEEDS TO FOLLOW UP TO HIS DIALYSIS CENTER ON HIS DIALYSIS SCHEDULE AT [facility]. STEVE ROSEN VERBALIZED UNDERSTANDING AND ANSWERED HIS QUESTION. WILL CONTINUE TO MONITOR.
--- NOTE | 2021-04-29 14:42 | NUR ---
Discharge Planning: Pt has order to discharge. APPLIQUER confirmed pt's outpatient dialysis- Pt goes to [facility] ([phone] [phone]); pt's scheduled chair time is Sunday 1:45pm-4:45pm. APPLIQUER spoke wit pt's son- Raheem and confirmed that pt is taken to his dialysis appointments by his son or brother.
--- NOTE | 2021-04-29 17:47 | NUR ---
DISCHARGE PATIENT AMBULATORY, DISCHARGE INSTRUCTION GIVEN AND VERBALIZED UNDERSTANDING, IV REMOVED. IN STABLE CONDITION.
[2021-04-29 17:50] VITALS: BP 122/64
[2021-04-30] MEDS ORDERED: EPOETIN ALFA-EPBX 10,000 UNITS/ML VIAL SUBQ SCH (09:00)
== END 2021-04-29 17:45 | disposition home or self-care (01) | DRG 133 ==
LOC: MED 12:44 → MTU 20:05
PROVIDERS: ADMIT Hospitalist; ATTEND Hospitalist
PROC: 5A1D70Z Performance of Urinary Filtration, Intermittent, Less than 6 Hours Per Day (ICD-10-PCS; principal; 2021-04-27)
PROC: 5A1D70Z Performance of Urinary Filtration, Intermittent, Less than 6 Hours Per Day (ICD-10-PCS; 2021-04-28)
DX: J96.01 Acute respiratory failure with hypoxia (principal); N17.0 Acute kidney failure with tubular necrosis; I13.2 Hypertensive heart and chronic kidney disease with heart failure and with stage 5 chronic kidney disease, or end stage renal disease; E83.39 Other disorders of phosphorus metabolism; E83.41 Hypermagnesemia; D63.8 Anemia in other chronic diseases classified elsewhere; N18.6 End stage renal disease; E11.22 Type 2 diabetes mellitus with diabetic chronic kidney disease; Z20.822 Contact with and (suspected) exposure to COVID-19; J44.9 Chronic obstructive pulmonary disease, unspecified; E11.65 Type 2 diabetes mellitus with hyperglycemia; F17.210 Nicotine dependence, cigarettes, uncomplicated; E87.5 Hyperkalemia; I50.9 Heart failure, unspecified; Z91.19 Patient's noncompliance with other medical treatment and regimen; Z99.2 Dependence on renal dialysis; Z79.899 Other long term (current) drug therapy
CPT/HCPCS: 36415; 71045; 80048; 80053; 82948; 83735; 83880; 84100; 84484; 85025; 85610; 85730; 87081; 93005; 96374; 96375; 99291; J1644; J1815; J1940

== ENCOUNTER 2022-04-12 19:40 | Inpatient (IN) | payer MEDICAID ==
[~2022-04-12] VITALS: Ht 167.6 cm; Wt 73.0 kg
[~2022-04-12 19:40] MED LIST changes: -ACET-10509 PO; +CALC667C3 PO; -LID5T TP; -METO25TA PO; +TRA200 PO
--- NOTE | 2022-04-12 19:58 | NUR ---
SPO2 84% ROOM AIR - TAKEN TO ED 4 FROM TRIAGE. REPORT TO KG GOLD
--- NOTE | 2022-04-12 19:59 | NUR ---
PT TAKEN TO BED 4
--- NOTE | 2022-04-12 20:02 | NUR ---
Dr. Mccray examining patient.
[2022-04-12 20:09] VITALS: BP 195/70
[2022-04-12 20:36] LABS: BASOPHILS # (AUTO) 0.1 K/uL (0.00-0.22); BASOPHILS % (AUTO) 1.1 % (0.0-2.0); EOSINOPHILS # (AUTO) 0.2 K/uL (0-0.4); EOSINOPHILS % (AUTO) 2.9 % (0.0-4.0); HEMATOCRIT 28.9 % (36-52); HEMOGLOBIN 9.8 g/dL (12.0-18.0); LYMPHOCYTES # (AUTO) 0.6 K/uL (2.0-11.5); LYMPHOCYTES % (AUTO) 10.8 % (20.5-51.1); MEAN CORPUSCULAR HEMOGLOBIN 29 pg (27-31); MEAN CORPUSCULAR HGB CONC 34 g/dL (33-37); MEAN CORPUSCULAR VOLUME 85.5 fL (80-94); MONOCYTES # (AUTO) 0.4 K/uL (0.8-1.0); MONOCYTES % (AUTO) 6.9 % (1.7-9.3); NEUTROPHILS # (AUTO) 4.7 K/uL (1.8-7.7); NEUTROPHILS % (AUTO) 78.3 % (42.2-75.2); PLATELET COUNT (AUTO) 122 K/uL (140-450); RED BLOOD CELL COUNT(AUTO) 3.38 MIL/uL (4.20-6.10); RED CELL DISTRIBUTION WIDTH 14.1 % (11.6-13.7)
--- NOTE | 2022-04-12 20:48 | NUR ---
Patient is A/Ox4, chest rise and fall symmetrical, no c/o pain or s/s of distress, on monitor, on NC.
--- NOTE | 2022-04-12 21:03 | NUR ---
X-Ray at bedside.
[2022-04-12 21:04] LABS: CARBON DIOXIDE 28.7 mmol/L (21-32); POTASSIUM 3.7 mmol/L (3.5-5.1)
[2022-04-12 21:10] LABS: ALBUMIN 3.8 g/dL (3.4-5.0); TOTAL BILIRUBIN 0.7 mg/dL (0.0-1.0)
[2022-04-12 21:12] LABS: CREATININE 5.4 mg/dL (0.6-1.3)
[2022-04-12] MEDS ORDERED: DEXAMETHASONE 10 MG/ML VIAL IVP ONE (21:40)
[2022-04-12] MEDS ORDERED: hydrALAZINE 20 MG/ML VIAL IVP ONE (21:55)
--- NOTE | 2022-04-12 22:10 | NUR ---
Patient is A/Ox4, chest rise and fall symmetrical, no c/o pain or s/s of distress, on monitor, on NC.
[2022-04-12] MEDS ORDERED: HYDR100T49 PO (22:27)
[2022-04-12] MEDS ORDERED: NIFE60TE5 PO (22:27)
[2022-04-12] MEDS ORDERED: LOSA100T1 PO (22:27)
[2022-04-12] MEDS ORDERED: TTS3 TD (22:27)
[2022-04-12] MEDS ORDERED: ATOR20TA PO (22:27)
[2022-04-12] MEDS ORDERED: cefTRIAXone 1,000 MG VIAL ONE (22:31)
[2022-04-12] MEDS ORDERED: ZOLPIDEM 5 MG TAB PO PRN (22:35)
[2022-04-12] MEDS ORDERED: HYDROcodone/APAP 7.5/325 MG 1 TAB PO PRN (22:35)
[2022-04-12] MEDS ORDERED: guaiFENesin DM 200/20 MG-10 ML 10 ML UDC PO PRN (22:35)
[2022-04-12] MEDS ORDERED: DOCUSATE SODIUM 100 MG GELCAP PO PRN (22:35)
[2022-04-12] MEDS ORDERED: ACETAMINOPHEN 325 MG TAB PO PRN (22:35)
[2022-04-12] MEDS ORDERED: POTASSIUM CHLORIDE 10 MEQ TABER PO PRN (22:35)
[2022-04-12] MEDS ORDERED: ONDANSETRON 4 MG/2 ML VIAL IM/IVP PRN (22:35)
[2022-04-12] MEDS: NACL 0.9% 1,000 ML IV SCH (22:46)
[2022-04-12 23:07] LABS: CHOL/HDL RATIO 1.8 (1-4.5); FREE T4 (FREE THYROXINE) 1.24 ng/dL (0.76-1.46); MAGNESIUM 2.2 mg/dL (1.8-2.4); THYROID STIMULATING HORMONE 0.8 uIU/mL (0.34-3.74)
--- NOTE | 2022-04-12 23:40 | NUR ---
Patient is A/Ox4, chest rise and fall symmetrical, no c/o pain or s/s of distress, on monitor, on NC.
--- NOTE | 2022-04-12 23:49 | NUR ---
Dr. Phipps informed, via telephone, that 20 mg IV hydralazine did not help patient BP. Dr. Phipps verbalized understanding stating "patient's blood pressure is high at baseline," and to "do whatever is in the computer." Dr. Phipps asked if ok to give Q6H hydralazine 10mg now, Dr. Phipps gave ok to give PRN hydralazine.
[2022-04-13] MEDS: hydrALAZINE 20 MG/ML VIAL IVP PRN ×3 (00:13→13:45)
[2022-04-13] MEDS: LABETALOL 200 MG TAB PO SCH ×2 (00:30→09:26)
[2022-04-13] MEDS: hydrALAZINE 25 MG TAB PO SCH ×2 (00:30→09:40)
--- NOTE | 2022-04-13 00:40 | NUR ---
Patient is A/Ox4, chest rise and fall symmetrical, no c/o pain or s/s of distress, on monitor, on NC.
--- NOTE | 2022-04-13 02:09 | NUR ---
Patient is A/Ox4, chest rise and fall symmetrical, no c/o pain or s/s of distress, on monitor, on NC.
--- NOTE | 2022-04-13 03:39 | NUR ---
Patient is A/Ox4, chest rise and fall symmetrical, no c/o pain or s/s of distress, on monitor, on NC.
--- NOTE | 2022-04-13 05:25 | NUR ---
Patient is A/Ox4, chest rise and fall symmetrical, no c/o pain or s/s of distress, on monitor, on NC.
--- NOTE | 2022-04-13 06:18 | NUR ---
Patient is A/Ox4, chest rise and fall symmetrical, no c/o pain or s/s of distress, on monitor, on NC.
--- NOTE | 2022-04-13 06:44 | NUR ---
Dr. Phipps contacted via phone, request for sliding scale. Waiting for orders.
[2022-04-13] MEDS ORDERED: DEXTROSE 50% 50 ML SYR IVP PRN (06:55)
[2022-04-13] MEDS: BLOOD GLUCOSE MONITORING 1 DEV DEV FS SCH ×4 (07:04→20:36)
[2022-04-13 07:19] LABS: BASOPHILS % (AUTO) 0.4 % (0.0-2.0); EOSINOPHILS % (AUTO) 0.1 % (0.0-4.0); HEMATOCRIT 28.9 % (36-52); HEMOGLOBIN 9.8 g/dL (12.0-18.0); LYMPHOCYTES # (AUTO) 0.6 K/uL (2.0-11.5); LYMPHOCYTES % (AUTO) 9.1 % (20.5-51.1); MEAN CORPUSCULAR HEMOGLOBIN 29 pg (27-31); MEAN CORPUSCULAR HGB CONC 34 g/dL (33-37); MEAN CORPUSCULAR VOLUME 85.7 fL (80-94); MONOCYTES # (AUTO) 0.1 K/uL (0.8-1.0); MONOCYTES % (AUTO) 2.1 % (1.7-9.3); NEUTROPHILS # (AUTO) 5.8 K/uL (1.8-7.7); NEUTROPHILS % (AUTO) 88.3 % (42.2-75.2); PLATELET COUNT (AUTO) 121 K/uL (140-450); RED BLOOD CELL COUNT(AUTO) 3.37 MIL/uL (4.20-6.10); RED CELL DISTRIBUTION WIDTH 14.2 % (11.6-13.7); WHITE BLOOD COUNT (AUTO) 6.5 K/uL (4.8-10.8)
--- NOTE | 2022-04-13 07:24 | NUR ---
Change of shift report given to AM shift nurse Bette RN. AM shift nurse Bette RN verbalized understanding of report, no further questions.
--- NOTE | 2022-04-13 07:44 | NUR ---
assumed care for pt at this time. pt. is resting in bed, no signs of distress. upon assessment, pt.'s chest is rising and falling, indicative of sleeping.
[2022-04-13 07:46] LABS: ANION GAP 15.3 (8-16); CARBON DIOXIDE 27.3 mmol/L (21-32); POTASSIUM 4.6 mmol/L (3.5-5.1)
[2022-04-13 07:48] LABS: CREATININE 6.4 mg/dL (0.6-1.3)
--- NOTE | 2022-04-13 08:23 | NUR ---
paged at this time to inform of critical creatinine and BUN results. awaiting callback at this time.
--- NOTE | 2022-04-13 08:37 | NUR ---
attempted to page MD for pt.'s elevated bp, awaiting callback at this time.
[2022-04-13] MEDS ORDERED: NON-FORMULARY ITEM (Hydralazine HCl (Hydralazine Hcl) 1 TAB) PO SCH (09:00)
--- NOTE | 2022-04-13 09:08 | NUR ---
MD Chapa paged again for pt.'s elevated bp, still awaiting callback at this time.
[2022-04-13] MEDS: NIFEdipine 60 MG TABER PO SCH (09:22)
[2022-04-13] MEDS: AZITHROMYCIN 250 MG TAB PO SCH (09:23)
[2022-04-13] MEDS: PANTOPRAZOLE 40 MG TABEC PO SCH (09:23)
[2022-04-13] MEDS: ATORVASTATIN 20 MG TAB PO SCH (09:27)
[2022-04-13] MEDS: LOSARTAN 50 MG TAB PO SCH (09:39)
--- NOTE | 2022-04-13 09:44 | NUR ---
PATIENT HAS BEEN SCREENED AND CATEGORIZED MODERATE NUTRITION RISK. PATIENT WILL BE SEEN WITHIN 3-5 DAYS OF ADMISSION. REVIEWED BY JAN CALDERON RD
--- NOTE | 2022-04-13 10:30 | NUR ---
per MD Phipps, NS should be discontinued at this time. NS turned off at this time.
[2022-04-13] MEDS: NACL 0.9% 1,000 ML IV SCH (15:15)
[2022-04-13] MEDS ORDERED: cefTRIAXone 1,000 MG VIAL ONE (16:40)
[2022-04-13] MEDS ORDERED: CLONIDINE HYDROCHLORIDE 0.1 MG TAB PO PRN (16:45)
--- NOTE | 2022-04-13 19:18 | NUR ---
report given to KG Chase for continuity of care.
[2022-04-13 19:35] VITALS: BP 138/54
--- NOTE | 2022-04-13 19:35 | NUR ---
RECEIVED REPORT FROM ER NURSE ALANA FOR CONTINUITY OF CARE. PATIENT IS A&O X4, MONGOLIAN SPEAKING. PATIENT IS ON NC 2L; BREATHING IS NORMAL WITH SYMMETRICAL RISE AND FALL OF CHEST. IV IS A L HAND 20G; RUNNING NS 60. PATIENT HAS A MARJ CATHETER IN RIGHT CHEST FOR HEMODIALYSIS. PATIENT IS AWAKE AND ALERT; SITTING UP IN BED. BED IS IN LOWEST POSITION, WHEELS LOCKED, CALL LIGHT IN PLACE. WILL CONTINUE TO OBSERVE PATIENT.
[2022-04-14] VITALS: BP 162/61
--- NOTE | 2022-04-14 02:40 | NUR ---
2100 BP MEDICATION NOT GIVEN BECAUSE PATIENT WAS RECEIVING DIALYSIS AT THE TIME. DIALYSIS NURSE CHERI ARRIVED AT 2108. DIALYSIS NURSE REQUESTED 2 VIALS OF 5000 UNIT HEPARIN (TOTAL OF 10,000 UNITS) FOR PATIENT AT 2225. DIALYSIS NURSE REPORTED 2600 ML OUT AT 0030. WAS INFORMED BY LUIS MIGUEL ROSAS THAT PATIENT WAS BLEEDING AT 0215. THE WHITE HUBS OF PATIENT'S MARJ CATHETER WERE BLEEDING. THE OLD DRESSING WAS REMOVED AND THE AREA WAS ASSESSED. NO LEAKS COULD BE SEEN AND HUBS WERE CLAMPED. A NEW DRESSING WAS PLACED OVER THE HUBS AND THE PATIENT'S WAS CLEANED WITH SUHAS WIPES AND GIVEN A NEW GOWN AND SHEETS. CATHETER WAS ASSESSED WITH CHARGE NURSE CAITY; CLEANING WAS DONE WITH ASSISTANCE FROM SONJA GUZMAN. PATIENT TOLERATED WELL AND WENT BACK TO BED. WILL CONTINUE TO OBSERVE PATIENT.
[2022-04-14 04:00] VITALS: BP 202/75
[2022-04-14] MEDS: hydrALAZINE 20 MG/ML VIAL IVP PRN (05:52)
[2022-04-14] MEDS: NACL 0.9% 1,000 ML IV SCH (06:42)
[2022-04-14 06:55] LABS: BASOPHILS % (AUTO) 0.7 % (0.0-2.0); EOSINOPHILS # (AUTO) 0.2 K/uL (0-0.4); EOSINOPHILS % (AUTO) 2.9 % (0.0-4.0); HEMATOCRIT 28.6 % (36-52); HEMOGLOBIN 9.5 g/dL (12.0-18.0); LYMPHOCYTES # (AUTO) 1.4 K/uL (2.0-11.5); LYMPHOCYTES % (AUTO) 22.7 % (20.5-51.1); MEAN CORPUSCULAR HEMOGLOBIN 29 pg (27-31); MEAN CORPUSCULAR HGB CONC 33 g/dL (33-37); MEAN CORPUSCULAR VOLUME 86.3 fL (80-94); MONOCYTES # (AUTO) 0.5 K/uL (0.8-1.0); MONOCYTES % (AUTO) 8.8 % (1.7-9.3); NEUTROPHILS # (AUTO) 3.9 K/uL (1.8-7.7); NEUTROPHILS % (AUTO) 64.9 % (42.2-75.2); PLATELET COUNT (AUTO) 127 K/uL (140-450); RED BLOOD CELL COUNT(AUTO) 3.32 MIL/uL (4.20-6.10); RED CELL DISTRIBUTION WIDTH 14.1 % (11.6-13.7)
[2022-04-14] MEDS: BLOOD GLUCOSE MONITORING 1 DEV DEV FS SCH ×4 (07:08→21:33)
[2022-04-14] MEDS ORDERED: CLONIDINE HYDROCHLORIDE 0.1 MG TAB PO PRN (07:15)
[2022-04-14 07:17] LABS: ANION GAP 13.7 (8-16); CARBON DIOXIDE 29.3 mmol/L (21-32)
--- NOTE | 2022-04-14 07:30 | NUR ---
ENDORSED TO DAY SHIFT NURSE KARSON FOR CONTINUITY OF CARE. PATIENT IS STABLE.
--- NOTE | 2022-04-14 07:30 | NUR ---
PATIENT'S 0400 BP WAS 202/75; ADMINISTERED HYDRALAZINE 10MG IVP TO PATIENT AT 0552. REASSESSED PATIENT'S BP AT 0652; BP WAS 209/75. MESSAGED THREAD GRINDER PHYSICIAN MURUGAN. RODRIGUEZ ORDERED CLONIDINE 0.1 Q8HR PRN FOR SBP >150. ADMINISTERED MEDICATION TO PATIENT AT 0717. WILL ENDORSE CARE TO DAY SHIFT NURSE.
--- NOTE | 2022-04-14 07:30 | NUR ---
HAND-OFF REPORT TO ONCOMING A.M NURSE.INFORMED TO SPIKE IN B/P AND TO VERIFY WITH [facility] APPROX. TIME OF HD SESSION AND IF SHE WANTS PRN B/P MEDS ON-BOARD AT THIS TIME PRIOR TO HD. A.M BLOOD SUGAR 78. ASYMPTOMATIC GRAPE JUICE GIVEN WITH 2 PACKS OF SUGAR. RELINQUISHED CARE OF PT AT THIS TIME.
--- NOTE | 2022-04-14 07:31 | NUR ---
RECEIVED REPORT FROM REGISTERED DIET TECHNICIAN NURSE, ALLA SAUL. REGISTERED DIET TECHNICIAN REPORTED PT BP WAS 202/75, AND HE GAVE PRN HYDRALAZINE. STATES HE RE-ASSESSED PT BP AN HR LATER, PT BP CONTINUES TO BE ELEVATED. HE STATES HE REPORTED TO MD. NEW ORDERS PLACED. WILL RE-ASSESS IN 1 HOUR. NO SIGNS OF DISTRESS NOTED.
[2022-04-14 07:56] LABS: CREATININE 4.8 mg/dL (0.6-1.3)
[2022-04-14 08:00] VITALS: BP 219/80
--- NOTE | 2022-04-14 08:32 | NUR ---
RE-ASSESSED PT BP, NOW AT 219/80. DR TRIMBLE MADE AWARE. STATES TO GO AHEAD AND GIVE AM ANTIHYPERTENSIVE MEDS.
[2022-04-14] MEDS: NIFEdipine 60 MG TABER PO SCH ×3 (08:53→21:00)
[2022-04-14] MEDS: LABETALOL 200 MG TAB PO SCH ×2 (08:53→21:15)
[2022-04-14] MEDS: hydrALAZINE 25 MG TAB PO SCH ×2 (08:54→17:37)
[2022-04-14] MEDS: LOSARTAN 50 MG TAB PO SCH (08:54)
[2022-04-14] MEDS: ATORVASTATIN 20 MG TAB PO SCH (08:54)
[2022-04-14] MEDS: PANTOPRAZOLE 40 MG TABEC PO SCH (08:54)
[2022-04-14] MEDS: AZITHROMYCIN 250 MG TAB PO SCH (08:54)
[2022-04-14 12:00] VITALS: BP 186/60
[2022-04-14] MEDS: INSULIN LISPRO SLIDING SCALE 100 UNITS/ML VIAL SUBQ PRN ×2 (12:03→21:40)
--- NOTE | 2022-04-14 12:03 | NUR ---
PT BLOOD GLUCOSE WAS 191, COVERED PER SLIDING SCALE.
--- NOTE | 2022-04-14 15:04 | NUR ---
MEDICATION ADALAT HELD, PER DR ORDER. BP 150/69. PT AT THIS TIME ALSO REFUSING MUNITIONS HANDLER SUPERVISOR CARE.
[2022-04-14 15:07] LABS: T4 (THYROXINE) 7.9 ug/dL (4.5-12.0)
[2022-04-14 16:00] VITALS: BP 134/65
--- NOTE | 2022-04-14 16:41 | NUR ---
IV ABX ADMINISTERED BY KG WHITNEY.
--- NOTE | 2022-04-14 16:50 | NUR ---
PT CONTINUES TO PULL OF NC. WENT TO FIX NC AGAIN. PT UPSET, CALLING HIS SON STATING "MY OXYGEN IS LOW AND THEY HAVE ME TIED UP". EXPLAINED TO PT AND SON THAT HIS 02 WILL DROP WHEN HE TAKES OFF HIS NC, AND INFORMED HIM THAT HE IS NOT TIED UP. PT STATED "YES I AM LOOK AT ALL THESE TUBES". PT REFERRING TO IV LINES. EXPLAINED TO PT AGAIN ABOUT NEED AND BENEFIT OF IV LINES. PT IGNORED NURSE AND STATED "JUST HAND ME MY OTHER PHONE AND LEAVE".
--- NOTE | 2022-04-14 17:14 | NUR ---
SPOKE WITH DIALYSIS NURSE, CHERI, PER DIALYSIS NURSE, PT WILL RECEIVE DIALYSIS FIRST THING TOMORROW MORNING 04/15/22, AWARE.
--- NOTE | 2022-04-14 19:30 | NUR ---
HAND-OFF REPORT RECEIVED FROM Ayaz TY FOR CONTINUITY OF CARE.ENDORSED HD FOR TOMORROW. B/P SPIKED. B/P PRN MEDS AVAILABLE. FREQUENT PATIENT TEACHING FOR KEEPING O2 NASAL CANNULA ON. CONTINUE TO MONITOR AND ASSIST.
--- NOTE | 2022-04-14 19:38 | NUR ---
ENDORSED PT TO SQL DEVELOPER NURSE VETO. PT IS STABLE.
[2022-04-14 20:00] VITALS: BP 115/45
--- NOTE | 2022-04-14 22:00 | NUR ---
ADALAT 60 MG TAB HELD PER PARAMETERS. B/P 115/45 WITH A SYSTOLIC < 120. CONT. TO DENY PAIN.
[2022-04-15] VITALS: BP 177/63
--- NOTE | 2022-04-15 | NUR ---
CORRECTION: O2 SAT 97%...NOT 70.
--- NOTE | 2022-04-15 02:00 | NUR ---
B/P 177/63 HR 60. PT FOR HEMO DIALYSIS TODAY. PRN B/P MEDS NOT GIVEN AT THIS TIME TO ALLOW SOME LEEWAY FOR HEMO DIALYSIS FURTHER EFFECT ON LOWERING B/P DURING DIALYSIS WHICH MAYBE OCCUR EARLY THIS A.M WILL CALL HD NURSE FOR TIME CLOSER TO A.M. CHANGE OF SHIFT
[2022-04-15 04:00] VITALS: BP 226/91
--- NOTE | 2022-04-15 06:30 | NUR ---
B/P 226/91 HR 67 . A CALL PLACED TO [facility] TO VERIFY TIME OF DIALYSIS AND IF B/P PRN MEDS SHOULD BE GIVEN NOW OR IF SHE IS COMING EARLY A.M TO DIALYZE. WILL ENDORSE TO ONCOMING NURSE.
[2022-04-15 07:29] LABS: BASOPHILS % (AUTO) 0.4 % (0.0-2.0); EOSINOPHILS # (AUTO) 0.1 K/uL (0-0.4); EOSINOPHILS % (AUTO) 1.4 % (0.0-4.0); HEMATOCRIT 26.8 % (36-52); LYMPHOCYTES # (AUTO) 1.4 K/uL (2.0-11.5); LYMPHOCYTES % (AUTO) 21.5 % (20.5-51.1); MEAN CORPUSCULAR HEMOGLOBIN 29 pg (27-31); MEAN CORPUSCULAR HGB CONC 34 g/dL (33-37); MEAN CORPUSCULAR VOLUME 86.1 fL (80-94); MONOCYTES # (AUTO) 0.4 K/uL (0.8-1.0); MONOCYTES % (AUTO) 6.5 % (1.7-9.3); NEUTROPHILS # (AUTO) 4.7 K/uL (1.8-7.7); NEUTROPHILS % (AUTO) 70.2 % (42.2-75.2); PLATELET COUNT (AUTO) 117 K/uL (140-450); RED BLOOD CELL COUNT(AUTO) 3.11 MIL/uL (4.20-6.10); WHITE BLOOD COUNT (AUTO) 6.6 K/uL (4.8-10.8)
[2022-04-15 07:40] LABS: CARBON DIOXIDE 26.5 mmol/L (21-32); POTASSIUM 4.5 mmol/L (3.5-5.1)
[2022-04-15 07:54] LABS: CREATININE 6.7 mg/dL (0.6-1.3)
[2022-04-15 08:00] VITALS: BP 226/83
[2022-04-15] MEDS: BLOOD GLUCOSE MONITORING 1 DEV DEV FS SCH ×4 (08:24→21:00)
[2022-04-15] MEDS: LABETALOL 200 MG TAB PO SCH ×3 (09:00→21:00)
[2022-04-15] MEDS: LOSARTAN 50 MG TAB PO SCH ×2 (09:00→13:10)
[2022-04-15] MEDS: NIFEdipine 60 MG TABER PO SCH ×3 (09:00→21:00)
[2022-04-15] MEDS: hydrALAZINE 25 MG TAB PO SCH ×3 (10:28→17:11)
[2022-04-15] MEDS: PANTOPRAZOLE 40 MG TABEC PO SCH (10:34)
[2022-04-15] MEDS: ATORVASTATIN 20 MG TAB PO SCH (10:34)
[2022-04-15] MEDS: AZITHROMYCIN 250 MG TAB PO SCH (10:34)
--- NOTE | 2022-04-15 10:45 | NUR ---
DIALYSIS NURSE AT BED PREPARING FOR HD TREATMENT
[2022-04-15 12:00] VITALS: BP 243/92
--- NOTE | 2022-04-15 13:07 | NUR ---
PER DR. SHERWOOD ADMINISTER MORNING BLOOD PRESSURE MEDICATION TO STABILIZE PATIENT'S ELEVATED BLOOD PRESSURE
--- NOTE | 2022-04-15 14:00 | NUR ---
DIALYSIS TREATMENT COMPLETED. 3.5 L OUT
[2022-04-15 16:00] VITALS: BP 161/57
[2022-04-15] MEDS: INSULIN LISPRO SLIDING SCALE 100 UNITS/ML VIAL SUBQ PRN (17:18)
[2022-04-15 20:00] VITALS: BP 128/53
[2022-04-16] VITALS: BP 158/72
[2022-04-16 04:00] VITALS: BP 180/80
[2022-04-16] MEDS: hydrALAZINE 20 MG/ML VIAL IVP PRN (06:23)
[2022-04-16] MEDS: BLOOD GLUCOSE MONITORING 1 DEV DEV FS SCH ×3 (06:27→17:07)
[2022-04-16 06:56] LABS: BASOPHILS % (AUTO) 0.5 % (0.0-2.0); EOSINOPHILS % (AUTO) 0.7 % (0.0-4.0); HEMATOCRIT 27.8 % (36-52); HEMOGLOBIN 9.3 g/dL (12.0-18.0); LYMPHOCYTES # (AUTO) 1.7 K/uL (2.0-11.5); MEAN CORPUSCULAR HEMOGLOBIN 29 pg (27-31); MEAN CORPUSCULAR HGB CONC 34 g/dL (33-37); MEAN CORPUSCULAR VOLUME 86.1 fL (80-94); MONOCYTES # (AUTO) 0.4 K/uL (0.8-1.0); MONOCYTES % (AUTO) 5.7 % (1.7-9.3); NEUTROPHILS # (AUTO) 4.8 K/uL (1.8-7.7); NEUTROPHILS % (AUTO) 69.1 % (42.2-75.2); PLATELET COUNT (AUTO) 133 K/uL (140-450); RED BLOOD CELL COUNT(AUTO) 3.23 MIL/uL (4.20-6.10); RED CELL DISTRIBUTION WIDTH 14.3 % (11.6-13.7); WHITE BLOOD COUNT (AUTO) 6.9 K/uL (4.8-10.8)
[2022-04-16 07:16] LABS: ANION GAP 15.2 (8-16); CARBON DIOXIDE 28.6 mmol/L (21-32); POTASSIUM 4.8 mmol/L (3.5-5.1)
[2022-04-16 08:00] VITALS: BP 167/66
[2022-04-16 08:03] LABS: CREATININE 5.7 mg/dL (0.6-1.3)
[2022-04-16] MEDS: AZITHROMYCIN 250 MG TAB PO SCH (08:58)
[2022-04-16] MEDS: NIFEdipine 60 MG TABER PO SCH (08:58)
[2022-04-16] MEDS: ATORVASTATIN 20 MG TAB PO SCH (08:58)
[2022-04-16] MEDS: LABETALOL 200 MG TAB PO SCH (08:59)
[2022-04-16] MEDS: PANTOPRAZOLE 40 MG TABEC PO SCH (08:59)
[2022-04-16] MEDS: LOSARTAN 50 MG TAB PO SCH (08:59)
[2022-04-16] MEDS: hydrALAZINE 25 MG TAB PO SCH ×3 (09:00→17:00)
[2022-04-16] MEDS ORDERED: AZIT250T11 PO (10:03)
[2022-04-16] MEDS ORDERED: DEXA6TAB1 PO (10:03)
[2022-04-16] MEDS: INSULIN LISPRO SLIDING SCALE 100 UNITS/ML VIAL SUBQ PRN (11:59)
[2022-04-16 12:00] VITALS: BP 163/71
--- NOTE | 2022-04-16 15:37 | NUR ---
RN SPOKE WITH DR SHERWOOD REGARDING PATIENT DIALYSIS ORDERS. DR SHERWOOD STATES PATIENT NEEDS DIALYSIS TODAY AND IS STABLE FOR DC TODAY AFTER THAT IS COMPLETED. DC ORDER IN PLACE, RN ALSO SPOKE WITH THE PATIENTS SON SILAS AT BEDSIDE, SILAS STATES THE PATIENT GOES TO [facility] ON [address] IN [place], DR DRAKE FOLLOWS THE PATIENT. THE PATIENT GOES M,W,F AT 1300, SILAS STATES THERE ARE NO ISSUES WITH HIS SCHEDULE OR ACCESS A FAMILY MEMBER ([facility]) TRANSPORTS THE PATIENT. SILAS WILL PROVIDE TRANSPORT HOME ONCE DIALYSIS IS COMPLETE AND THE PATIENT IS STABLE POST DIALYSIS.
[2022-04-16 16:00] VITALS: BP 127/87
--- NOTE | 2022-04-16 18:53 | NUR ---
PT FULLY DISCHARGED, 2.6LITTER OUTPUT FROM DIALYSIS, DISCHARGE INSTUCTION IS GIVEN CALLED THE SUN TO PICK DAD UP. ID AND IV REMOVED. PT ATE DINNER.[id number]
--- NOTE | 2022-04-16 19:30 | NUR ---
PT IS DISCHARGED.PT AMBULATED TO THE LOBBY WITH STEADY GAIT. PT PICKED BY SON. PT IS STABLE.
[2022-04-17] MEDS ORDERED: LOSARTAN 50 MG TAB PO SCH (09:00)
[2022-04-17] MEDS ORDERED: cloNIDine-TTS3 0.3 MG/24 HR 1 EA PATCH TD SCH (09:00)
== END 2022-04-16 19:30 | disposition home or self-care (01) | DRG 137 ==
LOC: MED 19:40 → MTU 22:11
PROVIDERS: ADMIT Family Medicine; ATTEND Family Medicine
PROC: 5A1D70Z Performance of Urinary Filtration, Intermittent, Less than 6 Hours Per Day (ICD-10-PCS; principal; 2022-04-12)
PROC: 5A1D70Z Performance of Urinary Filtration, Intermittent, Less than 6 Hours Per Day (ICD-10-PCS; 2022-04-13)
PROC: 5A1D70Z Performance of Urinary Filtration, Intermittent, Less than 6 Hours Per Day (ICD-10-PCS; 2022-04-14)
DX: U07.1 COVID-19 (principal); N17.0 Acute kidney failure with tubular necrosis; J96.01 Acute respiratory failure with hypoxia; J12.82 Pneumonia due to coronavirus disease 2019; I13.11 Hypertensive heart and chronic kidney disease without heart failure, with stage 5 chronic kidney disease, or end stage renal disease; J15.9 Unspecified bacterial pneumonia; D63.8 Anemia in other chronic diseases classified elsewhere; J81.1 Chronic pulmonary edema; E11.22 Type 2 diabetes mellitus with diabetic chronic kidney disease; I16.0 Hypertensive urgency; N18.6 End stage renal disease; R63.0 Anorexia; E78.5 Hyperlipidemia, unspecified; Z87.891 Personal history of nicotine dependence; Z91.199 Patient's noncompliance with other medical treatment and regimen due to unspecified reason; Z99.2 Dependence on renal dialysis
CPT/HCPCS: 36415; 36600; 71045; 80048; 80053; 82150; 82803; 82948; 83036; 83605; 83615; 83690; 83735; 84100; 84436; 84439; 84443; 84479; 84484; 85025; 85379; 85610; 85651; 85730; 86140; 87081; 93005; 96365; 96375; 99285; J0360; J0696; J1100; J1644; J2405; J7060; Q0092

== ENCOUNTER 2022-06-12 11:32 | Inpatient (IN) | payer MEDICAID ==
[~2022-06-12] VITALS: Ht 167.6 cm; Wt 79.8 kg
[~2022-06-12 11:32] MED LIST changes: +ATOR20TA PO; +AZIT250T11 PO; +DEXA6TAB1 PO; +HYDR100T49 PO; +LOSA100T2 PO; +NIFE60TE5 PO; -NIFE90TE63 PO; +TTS3 TD
--- NOTE | 2022-06-12 11:36 | NUR ---
PT W/C ASSISTED TO ER BED 4. RT CALLED FOR ASSISTANCE
[2022-06-12 11:41] VITALS: BP 194/72
[2022-06-12] MEDS ORDERED: cefTRIAXone 1,000 MG in DEXT 5% MINI-BAG PLUS 50 ML IV ONE (11:50)
[2022-06-12] MEDS ORDERED: MORPHINE SULFATE 4 MG/ML SYR IVP ONE (12:00)
--- NOTE | 2022-06-12 12:19 | NUR ---
X-Ray at bedside.
[2022-06-12] MEDS ORDERED: cefTRIAXone 1,000 MG VIAL ONE (12:29)
[2022-06-12 12:58] LABS: BASOPHILS # (AUTO) 0.1 K/uL (0.00-0.22); BASOPHILS % (AUTO) 0.9 % (0.0-2.0); EOSINOPHILS # (AUTO) 0.1 K/uL (0-0.4); EOSINOPHILS % (AUTO) 1.6 % (0.0-4.0); HEMATOCRIT 35.1 % (36-52); HEMOGLOBIN 11.2 g/dL (12.0-18.0); LYMPHOCYTES % (AUTO) 13.9 % (20.5-51.1); MEAN CORPUSCULAR HEMOGLOBIN 29 pg (27-31); MEAN CORPUSCULAR HGB CONC 32 g/dL (33-37); MEAN CORPUSCULAR VOLUME 90.6 fL (80-94); MONOCYTES # (AUTO) 0.4 K/uL (0.8-1.0); MONOCYTES % (AUTO) 5.7 % (1.7-9.3); NEUTROPHILS # (AUTO) 5.5 K/uL (1.8-7.7); NEUTROPHILS % (AUTO) 77.9 % (42.2-75.2); PLATELET COUNT (AUTO) 119 K/uL (140-450); RED BLOOD CELL COUNT(AUTO) 3.88 MIL/uL (4.20-6.10); RED CELL DISTRIBUTION WIDTH 15.8 % (11.6-13.7); WHITE BLOOD COUNT (AUTO) 7.1 K/uL (4.8-10.8)
[2022-06-12 13:28] LABS: ALBUMIN 3.9 g/dL (3.4-5.0); ANION GAP 19.4 (8-16); CARBON DIOXIDE 27.5 mmol/L (21-32); POTASSIUM 5.9 mmol/L (3.5-5.1); TOTAL BILIRUBIN 0.7 mg/dL (0.0-1.0)
[2022-06-12 13:35] LABS: CREATININE 11.6 mg/dL (0.6-1.3)
--- NOTE | 2022-06-12 14:06 | NUR ---
61 Y/O MALE BIB SON C/O UPPER BACK PAIN ONSET YESTERDAY, SOB. PT SATTING 70%RA, WOB NOTED, PT IN TRIPOD POSITION FOR COMFORT. PER SON PT NORMALLY ON 4LPM NC. PATIENT IS ON HD, MISSED DIALYSIS TODAY D/T PAIN. DENIES FEVERS. DENIES MEDICATION FOR PAIN. NKA PMH: DM, HD MWF
--- NOTE | 2022-06-12 14:10 | NUR ---
Patient was offered snacks.
--- NOTE | 2022-06-12 16:01 | NUR ---
PT ACCIDENTLY REMOVED IV. BLEEDING CONTROLLED WITH GAUZE AND TAPE AT THIS TIME. NEW IV INSERTED TO L HAND.
--- NOTE | 2022-06-12 16:31 | NUR ---
PT CLEANED, PANTS REMOVED WITH BLOOD. PT REPOSITIONED FOR COMFORT. PT ON CARDIAC/O2 MONITOR. ALL NEEDS MET.
[2022-06-12] MEDS ORDERED: ACETAMINOPHEN 325 MG TAB PO PRN (17:55)
[2022-06-12] MEDS ORDERED: MAG SULF 2000 MG/WATER PREMIX 50 ML IV PRN (17:55)
[2022-06-12] MEDS ORDERED: ONDANSETRON 4 MG/2 ML VIAL IVP PRN (17:55)
[2022-06-12] MEDS ORDERED: POTASSIUM CHLORIDE 10 MEQ TABER PO PRN (17:55)
[2022-06-12] MEDS ORDERED: SODIUM ZIRCONIUM CYCLOSILICATE 10 GM POWD.PACK PO SCH (18:00)
--- NOTE | 2022-06-12 18:03 | NUR ---
Updated Raheem, son of patients condition.
[2022-06-12] MEDS: HYDROcodone/APAP 7.5/325 MG 1 TAB PO PRN (18:17)
--- NOTE | 2022-06-12 18:24 | NUR ---
PT PROVIDED WITH DINNER TRAY. ALL NEEDS MET.
[2022-06-12] MEDS ORDERED: INSULIN LISPRO SLIDING SCALE 100 UNITS/ML VIAL SUBQ PRN (18:30)
--- NOTE | 2022-06-12 18:31 | NUR ---
SOPO2 DROPPED TO 88% ON 4L N/C. PT REPORTS FEELIGN SOB. O2 INCREASED TO 6L. DR CASTREJON CONTACTED. RT PAGED. Addendum: 06/12/22 at 1928 by [email or web address] RT AT BEDSIDE AT 1849- +JESSIKAES AUSCULTATED. RT RECOMMENDS BIPAP. +TRIPODING. DR CASTREJON NOTIFIED, ORDERED BIPAP.
[2022-06-12] MEDS ORDERED: ALBUTEROL 0.083% 2.5 MG/3 ML NEBU INH PRN ×2 (18:35→18:50)
[2022-06-12] MEDS ORDERED: IPRATROPIUM 0.02% 0.5 MG/2.5 ML NEBU INH PRN ×2 (18:35→18:50)
--- NOTE | 2022-06-12 18:46 | NUR ---
Called and left a message for Raheem to get an updated med list.
[2022-06-12 18:56] LABS: PROTHROMBIN TIME 11.6 secs (10.8-13.4)
--- NOTE | 2022-06-12 19:27 | NUR ---
REPORT GIVEN TO KG PATEL. TRANSFER OF CARE AT THIS TIME.
--- NOTE | 2022-06-12 19:30 | NUR ---
Patient received on bed lying comfortably and awake. Alert and oriented x4. No acute distress. No signs of pain or discomfort. Respirations even and unlabored while on BiPAP.
[2022-06-12 20:10] LABS: CHOL/HDL RATIO 1.8 (1-4.5); FREE T4 (FREE THYROXINE) 1.08 ng/dL (0.76-1.46); MAGNESIUM 3.1 mg/dL (1.8-2.4); THYROID STIMULATING HORMONE 1.22 uIU/mL (0.34-3.74)
[2022-06-12 20:19] LABS: PHOSPHORUS 9.6 mg/dL (2.5-4.9)
[2022-06-12] MEDS ORDERED: METOPROLOL 25 MG TAB PO SCH (20:35)
[2022-06-12] MEDS ORDERED: PIPERACILLIN/TAZOBACTAM 2.25 GM VIAL IV ONE (20:54)
[2022-06-12] MEDS: PIPERACILLIN/TAZOBACTAM 2.25 GM in DEXTROSE 5% 50 ML IV SCH (20:59)
[2022-06-12] MEDS: BLOOD GLUCOSE MONITORING 1 DEV DEV FS SCH (20:59)
[2022-06-12] MEDS: DOCUSATE SODIUM 100 MG GELCAP PO SCH (20:59)
[2022-06-12] MEDS ORDERED: PIPERACILLIN/TAZOBACTAM 2.25 GM in DEXTROSE 5% 50 ML IV SCH (21:00)
--- NOTE | 2022-06-12 21:30 | NUR ---
Blood pressure of patient is at 210/92. Called Dr. Barclay for blood pressure medication as needed. New order received. Noted and carried out.
--- NOTE | 2022-06-12 22:06 | NUR ---
Called Telemetry Unit and gave report to KG Rios.
--- NOTE | 2022-06-12 22:08 | NUR ---
Patient will be admitted to care of Dr. Barclay. Admited to Telemetry. Will go to room 113A. Belongings list completed. Report to KG Rios.
[2022-06-12 22:09] LABS: ANION GAP 19.3 (8-16); CARBON DIOXIDE 26.9 mmol/L (21-32)
[2022-06-12 22:13] LABS: POTASSIUM 6.2 mmol/L (3.5-5.1)
[2022-06-12 22:14] LABS: CREATININE 12.1 mg/dL (0.6-1.3)
--- NOTE | 2022-06-12 22:39 | NUR ---
called Philly on [facility] floor to update with received criticals of K+ 6.2, OUTSIDE SALES EXECUTIVE- 12.1, and BUN 116. Asked Philly to f/u with admitting physcian
[2022-06-12 22:43] VITALS: BP 173/64
--- NOTE | 2022-06-12 22:43 | NUR ---
PATIENT ADMITTED FROM ED, WITH CHIEF C/O UPPER BACK PAIN. PATIENT ADMITTED TO FLOOR CAME VIA GURNEY WITH DIAGNOSIS OF PNEUMONIA, SOB AND CKD. PATIENT IS ON BIBAP 03/07, FI02 45%. MRSA DONE. BEDSIDE CARE DONE, INITIAL ASSESSMENT DONE. PATIENT IS ON HEMODIALYSIS MWF, FROM REPORT PATIENT MISSED DIALYSIS ON 06/12/2022 BECAUSE OF THE PAIN. ALL SAFETY MEASURES IN PLACE. WILL CONTINUE TO MONITOR THE PATIENT.
--- NOTE | 2022-06-12 22:43 | NUR ---
ER STAFF CALLED FOR PATIENT'S CRITICAL LAB VALUES, POTASSIUM 6.2, CREATININE 12.1, BUN 116. DR CASTREJON WAS NOTIFIED @4859. ORDERED TO GIVE INSULIN REGULAR HUMAN 10UNITS IVP AND DEXTROSE 50%, 5OML IVP. ORDERS CARRIED OUT. WILL MONITOR THE PATIENT.
[2022-06-12] MEDS ORDERED: SODIUM ZIRCONIUM CYCLOSILICATE 10 GM POWD.PACK PO ONE (23:10)
[2022-06-12] MEDS ORDERED: DEXTROSE 50% 50 ML SYR IVP ONE (23:10)
[2022-06-12] MEDS ORDERED: INSULIN REGULAR, HUMAN 100 UNIT/ML VIAL IVP ONE (23:10)
[2022-06-13] VITALS: BP 183/82
--- NOTE | 2022-06-13 00:20 | NUR ---
PATIENT IS ASLEEP. VITALS T 97.4, P 68, BP 183/82, RESP 16, O2 SATS 97%. NO SIGNS OF PAIN NOTED, NO SIGNS OF DISTRESS NOTED.
[2022-06-13] MEDS ORDERED: DEXTROSE 50% 50 ML SYR IVP PRN (03:20)
[2022-06-13] MEDS ORDERED: DEXTROSE 50% 50 ML SYR IVP ONE (03:23)
--- NOTE | 2022-06-13 03:30 | NUR ---
PATIENT'S BLOOD SUGAR 49 MG/DL, GIVEN DEXTROSE 50%, 50ML ORDERED. BLOOD SUGAR RECHECKED @0430, 69 MG/DL, GIVEN ORANGE JUICE. AT 0410 LAB CALLED FOR CRITICAL LAB RESULT, POTASSIUM 5.8, CREATININE 12.0 AND BUN 117, MD MADE AWARE. PATIENT TO HAVE HEMODIALYSIS TODAY, DIALYSIS NURSE WAS NOTIFIED.
[2022-06-13 04:00] VITALS: BP 128/68
[2022-06-13 04:01] LABS: ANION GAP 15.3 (8-16); CARBON DIOXIDE 31.5 mmol/L (21-32); POTASSIUM 5.8 mmol/L (3.5-5.1)
[2022-06-13 04:02] LABS: BASOPHILS # (AUTO) 0.1 K/uL (0.00-0.22); BASOPHILS % (AUTO) 0.9 % (0.0-2.0); EOSINOPHILS # (AUTO) 0.1 K/uL (0-0.4); EOSINOPHILS % (AUTO) 1.3 % (0.0-4.0); HEMATOCRIT 33.5 % (36-52); HEMOGLOBIN 10.9 g/dL (12.0-18.0); LYMPHOCYTES # (AUTO) 0.6 K/uL (2.0-11.5); LYMPHOCYTES % (AUTO) 7.2 % (20.5-51.1); MEAN CORPUSCULAR HEMOGLOBIN 30 pg (27-31); MEAN CORPUSCULAR HGB CONC 33 g/dL (33-37); MEAN CORPUSCULAR VOLUME 90.9 fL (80-94); MONOCYTES # (AUTO) 0.5 K/uL (0.8-1.0); MONOCYTES % (AUTO) 5.7 % (1.7-9.3); NEUTROPHILS # (AUTO) 6.7 K/uL (1.8-7.7); NEUTROPHILS % (AUTO) 84.9 % (42.2-75.2); PLATELET COUNT (AUTO) 104 K/uL (140-450); RED BLOOD CELL COUNT(AUTO) 3.68 MIL/uL (4.20-6.10); RED CELL DISTRIBUTION WIDTH 15.4 % (11.6-13.7); WHITE BLOOD COUNT (AUTO) 7.9 K/uL (4.8-10.8)
[2022-06-13] MEDS ORDERED: PIPERACILLIN/TAZOBACTAM 2.25 GM VIAL IV ONE (04:34)
[2022-06-13] MEDS: PIPERACILLIN/TAZOBACTAM 2.25 GM in DEXTROSE 5% 50 ML IV SCH ×3 (04:41→20:17)
[2022-06-13 06:01] LABS: PHOSPHORUS 9.6 mg/dL (2.5-4.9)
--- NOTE | 2022-06-13 06:30 | NUR ---
BLOOD SUGAR IS 109 MG/DL, NO INSULIN COVERAGE NEEDED. NO SIGNS OF DISTRESS NOTED, NO SIGNS OF PAIN/DISCOMFORT NOTED. PATIENT ON BIBAP. CALL LIGHT WITHIN REACH.
[2022-06-13] MEDS: BLOOD GLUCOSE MONITORING 1 DEV DEV FS SCH ×4 (06:35→20:10)
--- NOTE | 2022-06-13 07:28 | NUR ---
ENDORSED PATIENT TO DAY NURSE FOR CONTINUITY OF CARE. PATIENT IN STABLE CONDITION.
[2022-06-13 08:00] VITALS: BP 191/90
--- NOTE | 2022-06-13 08:20 | NUR ---
PT TAKEN OFF OF BIPAP AND PLACED ON 3L NC PT NOT IN ANY DISTRESS AT THIS TIME. WILL CONTINUE TO MONITOR.
--- NOTE | 2022-06-13 09:07 | NUR ---
PATIENT HAS BEEN SCREENED AND CATEGORIZED MODERATE NUTRITION RISK. PATIENT WILL BE SEEN WITHIN 3-5 DAYS OF ADMISSION. REVIEWED BY JAN CALDERON RD
[2022-06-13] MEDS: PANTOPRAZOLE 40 MG INJ VIAL IVP SCH (09:11)
[2022-06-13] MEDS: METOPROLOL 25 MG TAB PO SCH ×2 (09:12→20:17)
[2022-06-13] MEDS: DOCUSATE SODIUM 100 MG GELCAP PO SCH ×2 (09:12→20:17)
[2022-06-13 12:00] VITALS: BP 181/92
--- NOTE | 2022-06-13 12:00 | NUR ---
PT PLACED ON BIPAP DURING DIALYSIS DUE TO LOW SPO2 AND INCREASED WOB. WILL CONTINUE TO MONITOR.
--- NOTE | 2022-06-13 13:00 | NUR ---
HD CONCLUDED. BP 188/87, 3LITERS OUT. PT AT APPROX. 75% LUNCH.
[2022-06-13 16:00] VITALS: BP 181/92
--- NOTE | 2022-06-13 19:25 | NUR ---
RECEIVED PATIENT LYING ON THE BED, NO SIGNS OF DISTRESS NOTED, C/O UPPER BACK PAIN. CALL LIGHT WITHIN REACH.
[2022-06-13] MEDS: HYDROcodone/APAP 7.5/325 MG 1 TAB PO PRN (19:30)
--- NOTE | 2022-06-13 19:30 | NUR ---
PRN NORCO GIVEN, PATIENT C/O 10/10 PAIN ON UPPER BACK. WILL CONTINUE TO MONITOR THE PATIENT. ALL SAFETY MEASURES IN PLACE.
[2022-06-13 20:00] VITALS: BP 178/83
--- NOTE | 2022-06-13 20:19 | NUR ---
SCHEDULED MEDICATIONS GIVEN ORDERED.
[2022-06-14] VITALS: BP 155/76
[2022-06-14] MEDS: HYDROcodone/APAP 7.5/325 MG 1 TAB PO PRN ×2 (01:51→09:43)
[2022-06-14 04:00] VITALS: BP 151/71
[2022-06-14] MEDS: PIPERACILLIN/TAZOBACTAM 2.25 GM in DEXTROSE 5% 50 ML IV SCH ×3 (04:13→21:31)
[2022-06-14] MEDS: BLOOD GLUCOSE MONITORING 1 DEV DEV FS SCH ×4 (06:38→21:00)
[2022-06-14 07:27] LABS: BASOPHILS # (AUTO) 0.1 K/uL (0.00-0.22); BASOPHILS % (AUTO) 0.6 % (0.0-2.0); EOSINOPHILS # (AUTO) 0.1 K/uL (0-0.4); HEMATOCRIT 32.1 % (36-52); HEMOGLOBIN 10.4 g/dL (12.0-18.0); LYMPHOCYTES # (AUTO) 1.1 K/uL (2.0-11.5); LYMPHOCYTES % (AUTO) 11.9 % (20.5-51.1); MEAN CORPUSCULAR HEMOGLOBIN 29 pg (27-31); MEAN CORPUSCULAR HGB CONC 32 g/dL (33-37); MEAN CORPUSCULAR VOLUME 90.4 fL (80-94); MONOCYTES # (AUTO) 0.7 K/uL (0.8-1.0); MONOCYTES % (AUTO) 7.9 % (1.7-9.3); NEUTROPHILS % (AUTO) 78.6 % (42.2-75.2); PLATELET COUNT (AUTO) 101 K/uL (140-450); RED BLOOD CELL COUNT(AUTO) 3.55 MIL/uL (4.20-6.10); RED CELL DISTRIBUTION WIDTH 15.4 % (11.6-13.7); WHITE BLOOD COUNT (AUTO) 8.9 K/uL (4.8-10.8)
--- NOTE | 2022-06-14 07:29 | NUR ---
ENDORSED PATIENT TO DAY NURSE FOR CONTINUITY OF CARE. NEEDS MET THROUGHOUT THE SHIFT. PATIENT IN STABLE CONDITION.
[2022-06-14 07:36] LABS: ANION GAP 15.4 (8-16); CARBON DIOXIDE 28.4 mmol/L (21-32); POTASSIUM 4.8 mmol/L (3.5-5.1)
--- NOTE | 2022-06-14 07:38 | NUR ---
GOT REPORT FROM THE NIGHT NURSE, NO SOB PT ASKING FOR MS FOR PAIN.[id number]
[2022-06-14 08:00] VITALS: BP 163/67
[2022-06-14 08:00] LABS: MAGNESIUM 2.6 mg/dL (1.8-2.4)
[2022-06-14 08:45] LABS: CREATININE 10.3 mg/dL (0.6-1.3)
[2022-06-14 08:46] LABS: PHOSPHORUS 9.2 mg/dL (2.5-4.9)
[2022-06-14] MEDS: PANTOPRAZOLE 40 MG INJ VIAL IVP SCH (09:04)
[2022-06-14] MEDS: METOPROLOL 25 MG TAB PO SCH ×2 (09:05→20:58)
[2022-06-14] MEDS: DOCUSATE SODIUM 100 MG GELCAP PO SCH ×2 (09:05→20:58)
--- NOTE | 2022-06-14 09:20 | NUR ---
DC PLANNING ATTEMPTED TO MEET PT AT BEDSIDE TO COMPLETE ASSESSMENT, HOWEVER, PT ON BIPAP, RECEIVING DIALYSIS AND HEAVILY SLEEPING PT IS REPORTED TO BE AMBULATORY AND ONLY UTILIZES FWW NEEDED. PT IS REPORTED TO COMPLETE ADL'S INDEPENDENTLY. PT RESIDES IN A SINGLE STORY BACK HOUSE WITH HIS SON, AT THE ADDRESS LISTED ON FILE SILAS ORTIZ PT RECEIVES DIALYSIS [facility] ON / 1-4PM, TRANSPORTATION PROVIDED BY FAMILY. . SILAS REPORTS TENTATIVE DC PLAN IS FOR PT TO RETURN HOME WITH FAMILY PROVIDING TRANSPORTATION, WHEN MEDICALLY STABLE Addendum: 06/14/22 at 921 by Domonique GILES Amended: Links added. Addendum: 06/14/22 at 921 by Domonique Wu SS NOTE ABOVE IS LATE ENTRY, ASSESSMENT COMPLETE ON 06/12 AT 11AM
--- NOTE | 2022-06-14 10:00 | NUR ---
HELD AM HEPARIN C\O PLT 101. [id number]
[2022-06-14 12:00] VITALS: BP 152/72
[2022-06-14] MEDS: MORPHINE SULFATE 2 MG/ML SYR IVP PRN ×2 (13:20→21:34)
[2022-06-14 16:00] VITALS: BP 102/85
--- NOTE | 2022-06-14 19:28 | NUR ---
given report to the night nurse manuel6
--- NOTE | 2022-06-14 19:29 | NUR ---
RECEIVED REPORT FROM KG JULIAN FOR CONTINUITY OF CARE. PT AWAKE IN BED. PER RN FOUND PT SITTING ON THE SIDE OF THE BED, CONFUSED AND DISORIENTED. PT ON 3L NC. RESPIRATIONS EVEN AND UNLABORED. HAD HD TODAY 3L OUT. PENDING URINE SPECIMEN FOR URINE CULTURE, NO URINE IN THE AM. RIJ TUNNEL HD CATH, INTACT. INITIAL ASSESSMENT DONE. POC DISCUSSED WITH PT AND KG GOLD. CALL LIGHT WITHIN REACH. SAFETY PRECAUTIONS IN PLACE.
[2022-06-14 20:00] VITALS: BP 150/78
--- NOTE | 2022-06-14 20:00 | NUR ---
Patient's Plan of Care was discussed and reviewed with SONJA ROSE
--- NOTE | 2022-06-14 21:02 | NUR ---
ADMINISTERED DUE MEDS. PT COMPLAINING OF BACK PAIN 12/10, KG GOLD WAS INFORMED.
--- NOTE | 2022-06-14 21:43 | NUR ---
WAS INFORMED BY SONJA ROSE THAT PATIENT WAS COMPLAINING OF PAIN AND REQUESTING HIS MORPHINE. CHECKED PATIENT'S CHART; MORPHINE WAS APPROPRIATE TO ADMINISTER. PATIENT TOLERATED MEDICATION WELL. 2100 ZOSYN WAS ALSO ADMINISTERED. SONJA ROSE WAS INFORMED. PATIENT IS BREATHING WITH SYMMETRICAL RISE AND FALL OF CHEST.
[2022-06-15] MEDS: HYDROcodone/APAP 7.5/325 MG 1 TAB PO PRN (04:55)
--- NOTE | 2022-06-15 04:55 | NUR ---
ADMINISTERED PRN PAIN MED FOR PT'S BACK PAIN. PT STILL AGITATED BECAUSE OF PAIN. USED DAY CARE SUPERVISOR TO SPEAK TO THE PT. EXPLAINED THAT NORCO WAS ALREADY GIVEN FOR PAIN AND WAIT FOR A LITTLE TIME TO TAKE EFFECT. NEW IV LINE NEEDS TO BE INSERTED BECAUSE IV LINE WAS PULLED OUT, IV CATHETER TIP INTACT. EXPLAINED THAT HE NEEDS TO KEEP HIS IV LINE SO HE CAN GET ALL HIS IV MEDICATIONS ON TIME. PT VERBALIZED UNDERSTANDING. PT WAS COOPERATIVE WHEN NEW IV LINE BEING INSERTED. PT WAS CALM IN BED AFTER.
[2022-06-15] MEDS: PIPERACILLIN/TAZOBACTAM 2.25 GM in DEXTROSE 5% 50 ML IV SCH ×3 (05:24→20:19)
--- NOTE | 2022-06-15 05:30 | NUR ---
ADMINISTERED ZOSYN IVPB TO PATIENT. MEDICATION STARTED SUCCESSFULLY WITHOUT ANY ISSUES. INFORMED CEMENT FITTINGS MAKER ROSE OF ADMINISTRATION.
[2022-06-15] MEDS: BLOOD GLUCOSE MONITORING 1 DEV DEV FS SCH ×4 (06:30→20:58)
--- NOTE | 2022-06-15 06:30 | NUR ---
NO SLIDING SCALE INSULIN FOR BS 81. GAVE PT SNACKS. PT ATE SNACKS IN BED.
--- NOTE | 2022-06-15 07:15 | NUR ---
GAVE BEDSIDE REPORT TO SONJA LEE FOR CONTINUITY OF CARE. PT IS STABLE.
--- NOTE | 2022-06-15 07:16 | NUR ---
RECEIVED PT FROM NETSUITE DEVELOPER NURSE FOR CONTINUITY OF CARE. PT AWAKE, AOX3. ABLE TO VERBALIZE NEEDS. ON 3L O2 VIA N/C. IV ON L HAND 22G. CALL LIGHT WITHIN REACH. ALL SAFETY PRECAUTIONS IN PLACE.
[2022-06-15 07:22] LABS: BASOPHILS # (AUTO) 0.1 K/uL (0.00-0.22); BASOPHILS % (AUTO) 0.5 % (0.0-2.0); EOSINOPHILS # (AUTO) 0.1 K/uL (0-0.4); EOSINOPHILS % (AUTO) 0.7 % (0.0-4.0); HEMATOCRIT 34.7 % (36-52); HEMOGLOBIN 11.3 g/dL (12.0-18.0); LYMPHOCYTES # (AUTO) 0.9 K/uL (2.0-11.5); LYMPHOCYTES % (AUTO) 9.7 % (20.5-51.1); MEAN CORPUSCULAR HEMOGLOBIN 29 pg (27-31); MEAN CORPUSCULAR HGB CONC 32 g/dL (33-37); MEAN CORPUSCULAR VOLUME 90.4 fL (80-94); MONOCYTES # (AUTO) 0.7 K/uL (0.8-1.0); MONOCYTES % (AUTO) 7.1 % (1.7-9.3); NEUTROPHILS # (AUTO) 7.9 K/uL (1.8-7.7); PLATELET COUNT (AUTO) 115 K/uL (140-450); RED BLOOD CELL COUNT(AUTO) 3.84 MIL/uL (4.20-6.10); RED CELL DISTRIBUTION WIDTH 15.4 % (11.6-13.7); WHITE BLOOD COUNT (AUTO) 9.7 K/uL (4.8-10.8)
[2022-06-15 07:23] LABS: ANION GAP 17.5 (8-16); CARBON DIOXIDE 26.1 mmol/L (21-32); POTASSIUM 4.6 mmol/L (3.5-5.1)
[2022-06-15 07:49] LABS: MAGNESIUM 2.6 mg/dL (1.8-2.4); PHOSPHORUS 7.7 mg/dL (2.5-4.9)
[2022-06-15 07:53] LABS: CREATININE 8.4 mg/dL (0.6-1.3)
[2022-06-15 08:00] VITALS: BP 228/86
[2022-06-15] MEDS: DOCUSATE SODIUM 100 MG GELCAP PO SCH ×2 (08:41→20:56)
[2022-06-15] MEDS: MORPHINE SULFATE 2 MG/ML SYR IVP PRN ×2 (08:41→16:20)
[2022-06-15] MEDS: METOPROLOL 25 MG TAB PO SCH (08:41)
[2022-06-15] MEDS: PANTOPRAZOLE 40 MG INJ VIAL IVP SCH (08:47)
--- NOTE | 2022-06-15 08:52 | NUR ---
ADMINISTERED SCHEDULED MEDS. PT COMPLAINING OF PAIN 01/09 STATES HE HAS BEEN WAITING FOR HOURS FOR PAIN MEDS. MEDICATED WITH IV MORPHINE BY KG CHOU.
--- NOTE | 2022-06-15 10:15 | NUR ---
PT BP TAKEN, BP ELEVATED. NO PRN MED AVAILABLE ON EMAR. INFORMED DR KLINE. AWAITING RESPONSE.
[2022-06-15] MEDS ORDERED: hydrALAZINE 20 MG/ML VIAL IVP PRN (10:40)
[2022-06-15] MEDS ORDERED: LABETALOL 20 MG/4 ML VIAL IVP SCH (13:30)
--- NOTE | 2022-06-15 14:27 | NUR ---
Patient's Plan of Care was discussed and reviewed with SONJA: OMARI
--- NOTE | 2022-06-15 15:14 | NUR ---
REASSESSED BP AFTER LABETALOL IV. BP IS NOW 189/72. PER DR HERNANDEZ NO NEW MED ORDER, JUST MONITOR PATIENT.
[2022-06-15 16:00] VITALS: BP 188/76
--- NOTE | 2022-06-15 16:38 | NUR ---
BLOOD SUGAR CHECK DONE-118. NO COVERAGE NEEDED.
--- NOTE | 2022-06-15 18:22 | NUR ---
PT SON AT BEDSIDE.
--- NOTE | 2022-06-15 19:15 | NUR ---
ENDORSED PT TO PASSENGER SCREENER NURSE FOR CONTINUITY OF CARE.
--- NOTE | 2022-06-15 19:16 | NUR ---
RECEIVED REPORT FROM DAY SHIFT NURSE ROSA FOR CONTINUITY OF CARE. PT AWAKE IN BED. ON 4L NC SATTING AT 95%. RESPIRATIONS EVEN AND UNLABORED. INITIAL ASSESSMENT DONE. POC DISCUSSED WITH PT AND KG MARISCAL. CALL LIGHT WITHIN REACH. SAFETY PRECAUTIONS IN PLACE.
[2022-06-15] MEDS ORDERED: LABETALOL 20 MG/4 ML VIAL IVP PRN (19:20)
[2022-06-15 20:00] VITALS: BP 159/68
--- NOTE | 2022-06-15 20:00 | NUR ---
Patient's Plan of Care was discussed and reviewed with ROSE CASILLAS:
[2022-06-15] MEDS: LOSARTAN 50 MG TAB PO SCH (20:56)
[2022-06-15] MEDS: NIFEdipine 90 MG TABER PO SCH (20:57)
--- NOTE | 2022-06-15 21:06 | NUR ---
ADMINISTERED DUE MEDS. NO INSULIN COVERAGE FOR BS 124.
[2022-06-16] MEDS: hydrALAZINE 20 MG/ML VIAL IVP PRN (04:02)
[2022-06-16] MEDS: PIPERACILLIN/TAZOBACTAM 2.25 GM in DEXTROSE 5% 50 ML IV SCH ×3 (04:02→21:26)
[2022-06-16] MEDS: BLOOD GLUCOSE MONITORING 1 DEV DEV FS SCH ×4 (06:39→21:32)
--- NOTE | 2022-06-16 06:39 | NUR ---
BLOOD SUGAR CHECK DONE. NO SLIDING SCALE INSULIN NEEDED. PT RESTING IN BED. NO DISTRESS NOTED. SAFETY PRECAUTIONS IN PLACE.
--- NOTE | 2022-06-16 07:18 | NUR ---
GAVE BEDSIDE REPORT TO SONJA LEE FOR CONTINUITY OF CARE. PT IS STABLE.
--- NOTE | 2022-06-16 07:19 | NUR ---
RECEIVED PT FROM LONG FILLER CIGAR ROLLER MACHINE NURSE FOR CONTINUITY OF CARE. PT IS IN BED SLEEPING. VISIBLE CHEST RISE/FALL. RESPIRATIONS EVEN AND UNLABORED ON 3L N/C. CALL LIGHT WITHIN REACH. ALL SAFETY PRECAUTIONS IN PLACE.
[2022-06-16 07:44] LABS: BASOPHILS # (AUTO) 0.1 K/uL (0.00-0.22); BASOPHILS % (AUTO) 0.8 % (0.0-2.0); EOSINOPHILS # (AUTO) 0.1 K/uL (0-0.4); EOSINOPHILS % (AUTO) 1.2 % (0.0-4.0); HEMATOCRIT 36.2 % (36-52); HEMOGLOBIN 11.7 g/dL (12.0-18.0); LYMPHOCYTES % (AUTO) 9.4 % (20.5-51.1); MEAN CORPUSCULAR HEMOGLOBIN 29 pg (27-31); MEAN CORPUSCULAR HGB CONC 32 g/dL (33-37); MEAN CORPUSCULAR VOLUME 89.9 fL (80-94); MONOCYTES # (AUTO) 0.7 K/uL (0.8-1.0); MONOCYTES % (AUTO) 6.7 % (1.7-9.3); NEUTROPHILS % (AUTO) 81.9 % (42.2-75.2); PLATELET COUNT (AUTO) 139 K/uL (140-450); RED BLOOD CELL COUNT(AUTO) 4.02 MIL/uL (4.20-6.10); RED CELL DISTRIBUTION WIDTH 15.1 % (11.6-13.7)
[2022-06-16 07:53] LABS: MAGNESIUM 2.9 mg/dL (1.8-2.4)
[2022-06-16 07:55] LABS: PHOSPHORUS 10.1 mg/dL (2.5-4.9)
[2022-06-16 08:00] VITALS: BP 128/51
--- NOTE | 2022-06-16 08:00 | NUR ---
Patient's Plan of Care was discussed and reviewed with SONJA: OMARI
[2022-06-16 08:27] LABS: ANION GAP 23.2 (8-16); CARBON DIOXIDE 22.2 mmol/L (21-32); POTASSIUM 5.4 mmol/L (3.5-5.1)
[2022-06-16] MEDS: DOCUSATE SODIUM 100 MG GELCAP PO SCH ×3 (08:38→13:50)
--- NOTE | 2022-06-16 08:38 | NUR ---
NURSE WENT WITH MORNING MEDS TO GIVE TO PT. PT AWAKE STATES "IM NOT GETTING ANY MEDICINE ANYMORE, DONT GIVE ME ANYTHING I DONT FEEL WELL" NURSE PROVIDED PT TEACHING REGARDING SCHEDULED MEDS, BENEFITS AND RISKS. PT STATES "I ALREADY TOLD YOU I DONT WANT IT, TAKE IT AWAY". KG CHOU CAME TO ADMINISTER IV MED, PT REFUSES MEDICATION. MORNING MEDS NOT ADMINISTERED PT IS REFUSING.
[2022-06-16] MEDS: NIFEdipine 90 MG TABER PO SCH ×2 (08:40→08:50)
[2022-06-16] MEDS: LOSARTAN 50 MG TAB PO SCH ×3 (08:41→21:37)
[2022-06-16 08:48] LABS: CREATININE 10.8 mg/dL (0.6-1.3)
[2022-06-16] MEDS: PANTOPRAZOLE 40 MG INJ VIAL IVP SCH (09:00)
--- NOTE | 2022-06-16 09:00 | NUR ---
NURSE CAME BY TO ASSIST PT TO EAT BREAKFAST. PT STATES "I DONT WANT ANYTHING, IM NOT GOING TO EAT.. ID RATHER OF HUNGER". NURSE ATTEMPTED TO FEED PT. PT TURNED HEAD REFUSED TO EAT. PROVIDED PT TEACHING REGARDING MANAGING BLOOD SUGAR LEVELS. PT NODS HEAD SIDE TO SIDE AND STATES "LEAVE ME ALONE ".
--- NOTE | 2022-06-16 15:50 | NUR ---
06/16/22 RD INITIAL ASSESSMENT COMPLETED PLEASE REFER TO NUTRITION ASSESSMENT UNDER CARE ACTIVITY FOR ESTIMATED NUTRITIONAL NEEDS. 1. CONTINUE RENAL DIET TOLERATED 2. RECOMMEND NEPRO BID 3. MONITOR GI, PO INTAKE, LAB VALUES. 4. RD TO FOLLOW-UP 3-5 DAYS, MODERATE RISK REVIEWED BY JAN CALDERON RD
[2022-06-16 16:00] VITALS: BP 150/56
--- NOTE | 2022-06-16 18:20 | NUR ---
PT SON AT BEDSIDE. WANTING UPDATE. INFORMED FAMILY MEMBER OF PATIENTS REFUSAL OF MEDICATIONS AND EATING TODAY. SON STATES HE WILL TALK TO PATIENT.
--- NOTE | 2022-06-16 19:52 | NUR ---
RECEIVED REPORT FROM DAY SHIFT NURSE FOR CONTINUITY OF CARE. PT IS STABLE AT THIS TIME. IV SITE WAS REMOVED BY PT, WILL ATTEMPT TO PLACE A NEW ONE. SAFETY MEASURES IN PLACE, CALL LIGHT WITHIN REACH.
--- NOTE | 2022-06-16 20:00 | NUR ---
Patient's Plan of Care was discussed and reviewed with ROSE CASILLAS:
[2022-06-17] MEDS: hydrALAZINE 20 MG/ML VIAL IVP PRN (00:58)
[2022-06-17 00:59] VITALS: BP 182/74
--- NOTE | 2022-06-17 01:09 | NUR ---
PT 0000 BLOOD PRESSURE = 182/74. HR 82. HYDRALAZINE 20 MG IVP PRN FOR SBP > 160 WAS ADMINISTERED BY KG MARISCAL. WILL REASSESS PT IN ONE HOUR.
--- NOTE | 2022-06-17 01:58 | NUR ---
BP UPON REASSESSMENT = 170/65. POC OF CARE WAS FURTHER DISCUSSED WITH LOIDA SAUL. WILL CONTINUE CLOSELY MONITORING THE PT.
[2022-06-17] MEDS: PIPERACILLIN/TAZOBACTAM 2.25 GM in DEXTROSE 5% 50 ML IV SCH (04:21)
[2022-06-17] MEDS: BLOOD GLUCOSE MONITORING 1 DEV DEV FS SCH ×4 (06:36→20:53)
--- NOTE | 2022-06-17 06:37 | NUR ---
PT REFUSED MORNING LABS AND BLOOD SUGAR CHECKS. AFTER EDUCATING THE PT ON THE RISKS AND BENEFITS, PT STILL REFUSED. WILL ENDORSE TO DAY SHIFT NURSE.
--- NOTE | 2022-06-17 07:30 | NUR ---
RECEIVED PT ON 4L NASAL CANNULA. SATURATION 98%, BREATH SOUNDS WERE CLEAR, RALES AT THE BASES. NO SOB OR DISTRESS NOTED. WILL CONTINUE TO MONITOR.
[2022-06-17 08:00] VITALS: BP 162/74
[2022-06-17] MEDS: LOSARTAN 50 MG TAB PO SCH ×2 (09:00→21:05)
--- NOTE | 2022-06-17 10:50 | NUR ---
SCREEN FOR LOW JOLANTA SCALE AT RISK, CONTINUE TO FOLLOW PRESSURE ULCER PREVENTION INTERVENTIONS. -TURN AND REPOSITION PATIENT Q 2H, ASSIST IF NEEDED -ASSESS AND MONITOR SKIN CONDITION DURING POSITION CHANGES -OFFLOAD BILATERAL HEELS BY PLACING PILLOWS UNDER CALVES AT ALL TIMES, UNLESS OTHERWISE CONTRAINDICATED -PRESSURE REDISTRIBUTION BY PLACING PILLOWS AND OFFLOADING SACRALCOCCYX -KEEP SKIN CLEAN AND DRY AT ALL TIMES.
[2022-06-17] MEDS ORDERED: LOSA50TA1 PO (10:58)
[2022-06-17] MEDS ORDERED: NIFE90TE63 PO (10:58)
[2022-06-17] MEDS ORDERED: AMOX-999 PO (10:59)
[2022-06-17] MEDS: PANTOPRAZOLE 40 MG INJ VIAL IVP SCH (12:35)
[2022-06-17] MEDS: NIFEdipine 90 MG TABER PO SCH (12:35)
[2022-06-17 16:00] VITALS: BP 179/73
[2022-06-17] MEDS: hydrALAZINE 25 MG TAB PO SCH (17:00)
[2022-06-17] MEDS: MORPHINE SULFATE 2 MG/ML SYR IVP PRN (20:06)
[2022-06-17] MEDS ORDERED: HALOPERIDOL IM 5 MG/ML VIAL IM SCH (20:40)
[2022-06-17] MEDS: DOCUSATE SODIUM 100 MG GELCAP PO SCH (20:49)
[2022-06-17] MEDS: lisinopriL 10 MG TAB PO SCH (21:05)
[2022-06-18 04:32] VITALS: BP 158/64
[2022-06-18] MEDS: BLOOD GLUCOSE MONITORING 1 DEV DEV FS SCH ×4 (06:02→21:49)
--- NOTE | 2022-06-18 06:02 | NUR ---
rn notes patient remains on 3L nasal cannula, no sob noted, patient with family member. Was placed on restraint due to removing of nasal cannula and desaturating. Given haloperidol one time per MD order. Last BS 85, no coverage needed.
[2022-06-18] MEDS: HYDROcodone/APAP 7.5/325 MG 1 TAB PO PRN (06:10)
--- NOTE | 2022-06-18 06:10 | NUR ---
rn notes patient refusing IV placement, after multiple times of RN asking patient.
[2022-06-18 07:21] LABS: ANION GAP 18.6 (8-16); CARBON DIOXIDE 27.9 mmol/L (21-32); POTASSIUM 4.5 mmol/L (3.5-5.1)
[2022-06-18 07:34] LABS: BASOPHILS # (AUTO) 0.1 K/uL (0.00-0.22); BASOPHILS % (AUTO) 0.7 % (0.0-2.0); EOSINOPHILS # (AUTO) 0.3 K/uL (0-0.4); EOSINOPHILS % (AUTO) 2.6 % (0.0-4.0); HEMATOCRIT 33.4 % (36-52); LYMPHOCYTES # (AUTO) 1.5 K/uL (2.0-11.5); MEAN CORPUSCULAR HEMOGLOBIN 30 pg (27-31); MEAN CORPUSCULAR HGB CONC 33 g/dL (33-37); MEAN CORPUSCULAR VOLUME 89.8 fL (80-94); MONOCYTES # (AUTO) 0.8 K/uL (0.8-1.0); MONOCYTES % (AUTO) 7.9 % (1.7-9.3); NEUTROPHILS # (AUTO) 7.1 K/uL (1.8-7.7); NEUTROPHILS % (AUTO) 73.8 % (42.2-75.2); PLATELET COUNT (AUTO) 164 K/uL (140-450); RED BLOOD CELL COUNT(AUTO) 3.72 MIL/uL (4.20-6.10); WHITE BLOOD COUNT (AUTO) 9.7 K/uL (4.8-10.8)
[2022-06-18 07:36] LABS: CREATININE 10.2 mg/dL (0.6-1.3)
[2022-06-18 08:00] VITALS: BP 163/61
[2022-06-18] MEDS: NIFEdipine 90 MG TABER PO SCH (09:54)
[2022-06-18] MEDS: lisinopriL 10 MG TAB PO SCH (09:54)
[2022-06-18] MEDS: hydrALAZINE 25 MG TAB PO SCH ×3 (09:55→17:20)
[2022-06-18] MEDS: DOCUSATE SODIUM 100 MG GELCAP PO SCH ×2 (09:55→21:49)
[2022-06-18] MEDS: LOSARTAN 50 MG TAB PO SCH ×2 (09:56→21:50)
[2022-06-18] MEDS: PANTOPRAZOLE 40 MG INJ VIAL IVP SCH (09:57)
[2022-06-18 16:00] VITALS: BP 148/70
[2022-06-18] MEDS ORDERED: NIFEdipine 90 MG TABER PO SCH (18:30)
[2022-06-18] MEDS: NIFEdipine 60 MG TABER PO SCH (18:37)
[2022-06-18] MEDS: MORPHINE SULFATE 2 MG/ML SYR IVP PRN (19:04)
--- NOTE | 2022-06-18 19:25 | NUR ---
ENDORSE PATIENT IN STABLE CONDITION TO PM SHIFT NURSE WHILE PIV AT L. FOREARM 20G SALINE LOCK. DAUGHTER IS BEDSIDE AND RESTRAINT WILL RENEW AFTER 2029.
--- NOTE | 2022-06-18 23:29 | NUR ---
PATIENT IS MORE COOPERATIVE NOW I RELEASE THE RESTRAIN AND IT LOOK MORE RELAX VITALS SIGNS IN NORMAL LIMITS NOT COMPLAINING OF PAIN
[2022-06-19 00:07] VITALS: BP 132/72
--- NOTE | 2022-06-19 00:15 | NUR ---
PATIENT STEVE ROSEN IS NOW CAME TO SPEND NIGHT WITH HIS DAD
[2022-06-19] MEDS: MORPHINE SULFATE 2 MG/ML SYR IVP PRN (03:32)
[2022-06-19] MEDS: BLOOD GLUCOSE MONITORING 1 DEV DEV FS SCH ×4 (06:31→21:00)
--- NOTE | 2022-06-19 06:55 | NUR ---
PATIENT STABLE VITALS SIGNS IN NORMAL LIMITS NOT COMPLAINING OF PAIN AT THIS TIME PATIENT HAVE SOME INTERMITTENT CONFUSION
--- NOTE | 2022-06-19 07:40 | NUR ---
PRN WAS PULLED ACCIDENTLY. MED WAS REPLACED
[2022-06-19 08:00] VITALS: BP 168/75
[2022-06-19] MEDS: hydrALAZINE 25 MG TAB PO SCH ×3 (09:00→16:49)
[2022-06-19] MEDS: PANTOPRAZOLE 40 MG INJ VIAL IVP SCH (09:44)
[2022-06-19] MEDS: DOCUSATE SODIUM 100 MG GELCAP PO SCH ×2 (09:44→23:55)
[2022-06-19] MEDS: NIFEdipine 60 MG TABER PO SCH ×2 (09:45→23:55)
[2022-06-19] MEDS: LOSARTAN 50 MG TAB PO SCH ×2 (09:46→23:56)
[2022-06-19 12:09] LABS: BASOPHILS % (AUTO) 0.5 % (0.0-2.0); EOSINOPHILS # (AUTO) 0.3 K/uL (0-0.4); EOSINOPHILS % (AUTO) 3.4 % (0.0-4.0); HEMATOCRIT 33.2 % (36-52); HEMOGLOBIN 10.9 g/dL (12.0-18.0); LYMPHOCYTES # (AUTO) 0.8 K/uL (2.0-11.5); LYMPHOCYTES % (AUTO) 9.2 % (20.5-51.1); MEAN CORPUSCULAR HEMOGLOBIN 29 pg (27-31); MEAN CORPUSCULAR HGB CONC 33 g/dL (33-37); MEAN CORPUSCULAR VOLUME 89.3 fL (80-94); MONOCYTES # (AUTO) 0.7 K/uL (0.8-1.0); MONOCYTES % (AUTO) 7.6 % (1.7-9.3); NEUTROPHILS # (AUTO) 7.3 K/uL (1.8-7.7); NEUTROPHILS % (AUTO) 79.3 % (42.2-75.2); PLATELET COUNT (AUTO) 182 K/uL (140-450); RED BLOOD CELL COUNT(AUTO) 3.71 MIL/uL (4.20-6.10); RED CELL DISTRIBUTION WIDTH 14.8 % (11.6-13.7); WHITE BLOOD COUNT (AUTO) 9.1 K/uL (4.8-10.8)
[2022-06-19 12:11] LABS: ANION GAP 12.8 (8-16); POTASSIUM 3.8 mmol/L (3.5-5.1)
[2022-06-19 12:23] LABS: CREATININE 6.3 mg/dL (0.6-1.3)
[2022-06-19 16:00] VITALS: BP 150/56
--- NOTE | 2022-06-19 19:30 | NUR ---
HAND-OFF REPORT RECEIVED FROM JARETH SAUL WITH BEDSIDE ROUNDS FOLLOWING.RECEIVED PT AWAKE A/OX2 WITH CONFUSION AND BILATERAL SOFT WRIST RESTRAINTS STANDING BY TO PREVENT PT FROM PULLING LINES OUT. FAMILY MEMBERS AT BEDSIDE SOCIALIZING. PT EATING FOODS BROUGHT FROM HOME AND OBSERVED ENJOYING FAMILY. WILL AGAIN PLACE RESTRAINTS UPON FAMILIES DEPARTURE. LFA 20 [address] SL. RIGHT IJ TUNNEL CATHETER FOR DIALYSIS. REPORTED 2.5L REMOVED VIA HD TODAY. CONT. TO MONITOR AND ASSIST NEEDED.
--- NOTE | 2022-06-19 19:43 | NUR ---
ENDORSE PATIENT IN STABLE CONDITION TO PM SHIFT NURSE WHILE PIV AT L. FOREARM 20G SALINE LOCK. FAMILY AT BEDSIDE AND RESTRAINT WILL RENEW
[2022-06-19 20:30] VITALS: BP 181/64
--- NOTE | 2022-06-20 | NUR ---
PT RESTING WELL. WHEN MOVED SLIGHTLY PT FROWNS FROM WHAT I CONCLUDE ACUTE BACK DISCOMFORT.
--- NOTE | 2022-06-20 04:00 | NUR ---
BATH GIVEN AND LINEN CHANGE. PT TOLERATED ACTIVITY POORLY DUE TO BACK DISCOMFORT. WHEN STILL APPEARS PAIN FREE.
[2022-06-20 07:07] LABS: BASOPHILS % (AUTO) 0.4 % (0.0-2.0); EOSINOPHILS # (AUTO) 0.3 K/uL (0-0.4); EOSINOPHILS % (AUTO) 2.6 % (0.0-4.0); HEMATOCRIT 36.4 % (36-52); HEMOGLOBIN 11.6 g/dL (12.0-18.0); LYMPHOCYTES # (AUTO) 1.3 K/uL (2.0-11.5); LYMPHOCYTES % (AUTO) 12.2 % (20.5-51.1); MEAN CORPUSCULAR HEMOGLOBIN 29 pg (27-31); MEAN CORPUSCULAR HGB CONC 32 g/dL (33-37); MEAN CORPUSCULAR VOLUME 90.1 fL (80-94); MONOCYTES # (AUTO) 0.8 K/uL (0.8-1.0); MONOCYTES % (AUTO) 7.3 % (1.7-9.3); NEUTROPHILS % (AUTO) 77.5 % (42.2-75.2); PLATELET COUNT (AUTO) 212 K/uL (140-450); RED BLOOD CELL COUNT(AUTO) 4.04 MIL/uL (4.20-6.10); RED CELL DISTRIBUTION WIDTH 15.1 % (11.6-13.7); WHITE BLOOD COUNT (AUTO) 10.3 K/uL (4.8-10.8)
[2022-06-20 07:13] LABS: ANION GAP 17.3 (8-16); CARBON DIOXIDE 27.8 mmol/L (21-32); POTASSIUM 5.1 mmol/L (3.5-5.1)
[2022-06-20 07:15] LABS: CREATININE 9.6 mg/dL (0.6-1.3)
--- NOTE | 2022-06-20 07:15 | NUR ---
LAB CALLED WITH CRITICAL CREATININE OF 9.6, INFORMED DR TRIMBLE.
--- NOTE | 2022-06-20 07:30 | NUR ---
HAND-OFF REPORT TO ONCOMING DAY SHIFT NURSE. REPORTED DISCHARGE PACKET REPORTED COMPLETE BY DAYSHIFT. DISCHARGE DESTINATION REMAINS UNSETTLED YET. RENEWAL ON RESTRAINTS NEEDED BY 1944 TO NIGHT. RELINQUISHED CARE OF PT AT THIS TIME.
--- NOTE | 2022-06-20 07:30 | NUR ---
RECEIVED PT FROM TRANSPORT ASSISTANT FOR CONTINUITY OF CARE.
[2022-06-20 08:00] VITALS: BP 196/77
--- NOTE | 2022-06-20 08:00 | NUR ---
Patient's Plan of Care was discussed and reviewed with SONJA: OMARI
[2022-06-20] MEDS: BLOOD GLUCOSE MONITORING 1 DEV DEV FS SCH ×4 (08:19→20:22)
[2022-06-20] MEDS: PANTOPRAZOLE 40 MG INJ VIAL IVP SCH (09:00)
--- NOTE | 2022-06-20 09:24 | NUR ---
DC INFORMATION SYSTEMS SECURITY DEVELOPER PT EVAL CAME LATE. INSURANCE [facility] FAXED. AT 1630 GOT A CALL FROM [facility] AND PT IS UNDER REVIEW. WILL FOLLOW UP WITH INSURANCE AND AT FROM [facility] 06/20/2022
[2022-06-20] MEDS: NIFEdipine 60 MG TABER PO SCH ×2 (09:36→20:20)
[2022-06-20] MEDS: hydrALAZINE 25 MG TAB PO SCH ×3 (09:38→17:06)
[2022-06-20] MEDS: LOSARTAN 50 MG TAB PO SCH ×2 (09:39→20:21)
[2022-06-20] MEDS: DOCUSATE SODIUM 100 MG GELCAP PO SCH ×2 (09:43→20:21)
--- NOTE | 2022-06-20 13:25 | NUR ---
AGATA PEACOCK RECEIVED ODER FOR PT TO GO TO SNF FOR PHYSICAL THERAPY. FAXED TO THE FOLLOWING: [facility], [facility], [facility], BRANDI QUEEN FROM [facility] INITIALLY SAID THAT THEY WOULD BE ABLE TO ACCEPT PT. BUT OF 06/20/2022 AT 1330 BRET INFORMED ME HE WOULDN'T BE ABLE TO ACCEPT PT. WILL FOLLOW UP WITH OTHER FACILITIES. Addendum: 06/21/22 at 1448 by FARHAT ESTES CM FAXED TO THE FOLLOWING SNF 06/21/2022: [facility], [facility], [facility], [facility], [facility]. NO ONE HAS ACCEPTED PT. SPOKE WITH SON ABOUT HAVING A HARD TIME GETTING PT INTO SNF AND ASKED IF HOME HEALTH PT IS AN OPTION. HE SAID HOME HEALTH FOR PHYSICAL THERAPY IS AN OPTION. ODER WAS PUT IN FOR HOME HEALTH PHYSICAL THERAPY OF 06/21/22 6827. Addendum: 06/21/22 at 1511 by Ila Cowan RN DC PLANNING: JESSICA CALLED [facility] [phone] SPOKE WITH CM STATED THE ADDR[place] THEY [place] AND UNABLE TO SEND ANY HOME HEALTH IN THE [place] AND SUGGESTED TO CHANGE THE HEALTH PLAN. JESSICA CALLED PT'S SON TO DISCUSS LEFT A MESSAGE. CM TO FOLLOW Addendum: 06/21/22 at 1628 by FARHAT ESTES CM SPOKE WITH SON SILAS, PT WILL BE GOING HOME WITH HIM AFTER DISCHARGE SO INFORMED HIM THAT PT WILL NEED NEW INSURANCE BECAUSE PT DOESN'T QUALIFY FOR [facility] WHILE LIVING IN [place] PER [facility]. HE SAID HE WILL LOOK INTO GETTING NEW INSURANCE.
--- NOTE | 2022-06-20 14:30 | NUR ---
THORACENTESIS 1500 FLUID OUT.
[2022-06-20 16:00] VITALS: BP 208/72
[2022-06-20] MEDS: MORPHINE SULFATE 2 MG/ML SYR IVP PRN (18:22)
--- NOTE | 2022-06-20 19:30 | NUR ---
ENDORSED PT TO HISTOLOGY SUPERVISOR NURSE FOR CONTINUITY OF CARE. PT STABLE.
--- NOTE | 2022-06-20 19:35 | NUR ---
RECEIVED PT IN BED, ASLEEP.FAMILY MEMBERS AT THE BEDSIDE. NO S/SX OF PAIN NOR DISCOMFORT. NO ACUTE RESPIRATORY DISTRESS NOTED. SKIN WARM AND DRY TO TOUCH. SAFETY PRECAUTIONS IN PLACE, CALL LIGHT IN REACH.
[2022-06-20 19:50] VITALS: BP 195/78
--- NOTE | 2022-06-21 00:42 | NUR ---
ROUNDING DONE. PATIENT IS ASLEEP. NO ACUTE RESPIRATORY DISTRESS. CALL LIGHT IN REACH.
--- NOTE | 2022-06-21 03:45 | NUR ---
AM CARE DONE, PROVIDED WITH ENSURE, TOLERATED WELL. MADE COMFORTABLE IN BED. CALL LIGHT PLACED WITHIN REACH.
[2022-06-21 04:00] VITALS: BP 150/57
--- NOTE | 2022-06-21 06:18 | NUR ---
PATIENT IS ASLEEP. ALL NEEDS ATTENDED TO. NO S/SX OF PAIN. SAFETY PRECAUTIONS IN PLACE, CALL LIGHT IN REACH.
[2022-06-21] MEDS: BLOOD GLUCOSE MONITORING 1 DEV DEV FS SCH ×4 (06:34→20:29)
[2022-06-21 06:58] LABS: ANION GAP 19.1 (8-16); CARBON DIOXIDE 27.4 mmol/L (21-32); POTASSIUM 5.5 mmol/L (3.5-5.1)
[2022-06-21 07:04] LABS: BASOPHILS # (AUTO) 0.1 K/uL (0.00-0.22); BASOPHILS % (AUTO) 0.6 % (0.0-2.0); EOSINOPHILS # (AUTO) 0.2 K/uL (0-0.4); EOSINOPHILS % (AUTO) 1.7 % (0.0-4.0); HEMATOCRIT 38.2 % (36-52); HEMOGLOBIN 12.3 g/dL (12.0-18.0); LYMPHOCYTES # (AUTO) 1.4 K/uL (2.0-11.5); LYMPHOCYTES % (AUTO) 10.6 % (20.5-51.1); MEAN CORPUSCULAR HEMOGLOBIN 29 pg (27-31); MEAN CORPUSCULAR HGB CONC 32 g/dL (33-37); MEAN CORPUSCULAR VOLUME 90.5 fL (80-94); MONOCYTES # (AUTO) 0.7 K/uL (0.8-1.0); MONOCYTES % (AUTO) 5.5 % (1.7-9.3); NEUTROPHILS # (AUTO) 10.7 K/uL (1.8-7.7); NEUTROPHILS % (AUTO) 81.6 % (42.2-75.2); PLATELET COUNT (AUTO) 206 K/uL (140-450); RED BLOOD CELL COUNT(AUTO) 4.22 MIL/uL (4.20-6.10); RED CELL DISTRIBUTION WIDTH 14.6 % (11.6-13.7); WHITE BLOOD COUNT (AUTO) 13.1 K/uL (4.8-10.8)
[2022-06-21 07:34] LABS: CREATININE 11.5 mg/dL (0.6-1.3)
--- NOTE | 2022-06-21 07:50 | NUR ---
RECEIVED PATIENT AND RECEIVED REPORT FROM DAY SHIFT NURSE, MONTY. PER DAY SHIFT NURSE, PT IS ALERT AND ORIENTED X2, ABLE TO FOLLOW COMMANDS. PT IS ON 3L O2 VIA NC. PT O2 SAT AT 98% AT THIS TIME. RESPIRATIONS ARE EVEN AND UNLABORED. NO SIGNS OF DISTRESS NOTED. ABD IS NONTENDER, NONDISTENDED WITH BOWEL SOUNDS PRESENT. PT LAST BOWEL MOVEMENT WAS YESTERDAY. PER DAY SHIFT NURSE, PT IS SCHEDULED FOR HEMODIALYSIS TODAY, CONTACTED HEMODIALYSIS NURSE FOR DIALYSIS TIME FRAME. AWAITING CALL BACK. PT IS INCONTINENT OF BOWEL AND BLADDER. PT HAS IV TO LFA, 20G, SALINE LOCKED. CALL LIGHT WITHIN REACH. ALL SAFETY MEASURES IN PLACE.
[2022-06-21] MEDS: PANTOPRAZOLE 40 MG INJ VIAL IVP SCH (08:32)
[2022-06-21] MEDS: hydrALAZINE 25 MG TAB PO SCH ×3 (09:00→17:00)
[2022-06-21] MEDS: NIFEdipine 60 MG TABER PO SCH ×2 (09:00→20:14)
[2022-06-21] MEDS: LOSARTAN 50 MG TAB PO SCH ×2 (09:00→20:15)
[2022-06-21] MEDS: DOCUSATE SODIUM 100 MG GELCAP PO SCH ×2 (09:02→20:15)
--- NOTE | 2022-06-21 09:05 | NUR ---
ADMINISTERED SCHEDULED MEDICATION HEPARIN AND COLACE. AWAITING CALL FROM DIALYSIS NURSE FOR DIALYSIS TIME FRAME BEFORE ADMINISTERING BP MEDICATION. ONCE NURSE INFORMS OF DIALYSIS TIME, WILL COORDINATE WITH DIALYSIS NURSE REGARDING BP MEDICATION ADMINISTRATION. AT THIS TIME, BP IS 131/66.
--- NOTE | 2022-06-21 09:38 | NUR ---
Patient's Plan of Care was discussed and reviewed with SONJA: OMARI
--- NOTE | 2022-06-21 10:19 | NUR ---
DID ROUNDS ON PT. PT SLEEPING AT THIS TIME. RESPIRATIONS ARE EVEN AND UNLABORED.
--- NOTE | 2022-06-21 11:20 | NUR ---
PT BLOOD GLUCOSE 90. NO INSULIN COVERAGE PER SLIDING SCALE.
--- NOTE | 2022-06-21 11:48 | NUR ---
SPOKE WITH DIALYSIS NURSE, CHERI, WAS INFORMED THAT DIALYSIS WOULD BE AT 1500. PT MADE AWARE.
--- NOTE | 2022-06-21 15:26 | NUR ---
DIALYSIS NURSE HERE TO BEGIN DIALYSIS.
[2022-06-21 16:00] VITALS: BP 151/72
--- NOTE | 2022-06-21 16:50 | NUR ---
06/21/22 RD FOLLOW UP COMPLETED PLEASE REFER TO NUTRITION ASSESSMENT UNDER CARE ACTIVITY FOR ESTIMATED NUTRITIONAL NEEDS. 1. CONTINUE RENAL DIET WITH NEPRO BID TOLERATED (NEPRO BID PROVIDES 840 KCAL AND 38 GM PROTEIN DAILY) 2. MONITOR GI SYMPTOMS, PO INTAKE, AND NUTRITION RELATED LAB VALUES 3. RD TO FOLLOW-UP 7 DAYS, LOW RISK REVIEWED BY JAN CALDERON RD
--- NOTE | 2022-06-21 17:39 | NUR ---
DIALYSIS NURSE REQUEST HEPARIN, 10,000 UNITS. ORDERED. ADMINISTERED BY DIALYSIS NURSE CHERI.
--- NOTE | 2022-06-21 18:21 | NUR ---
DIALYSIS COMPLETE. 2L OUT. PT TOLERATED WELL.
--- NOTE | 2022-06-21 19:08 | NUR ---
ENDORSED PT TO BRANCHER NURSELOIDA, FOR CONTINUITY OF CARE. PT IS STABLE.
--- NOTE | 2022-06-21 19:10 | NUR ---
RECEIVED PT IN BED, ASLEEP. FAMILY MEMBER AT THE BEDSIDE. NO S/SX OF PAIN NOR DISCOMFORT. NO ACUTE RESPIRATORY DISTRESS NOTED. SKIN WARM AND DRY TO TOUCH. SAFETY PRECAUTIONS IN PLACE, CALL LIGHT IN REACH.
[2022-06-21 19:45] VITALS: BP 166/92
[2022-06-22 04:00] VITALS: BP 142/64
--- NOTE | 2022-06-22 06:15 | NUR ---
PATIENT IS ASLEEP. NO DISTRESS NOTED. ALL NEEDS ATTENDED TO. SAFETY PRECAUTIONS MAINTAINED DURING THE SHIFT, CALL LIGHT REMAINS WITHIN REACH.
[2022-06-22] MEDS: BLOOD GLUCOSE MONITORING 1 DEV DEV FS SCH ×3 (06:34→16:30)
--- NOTE | 2022-06-22 07:05 | NUR ---
ASSUMED CONTINUITY OF CARE. INITIAL ASSESSMENT DONE. KEEP COMFORTABLE ON BED. FALL PRECAUTION APPLIED. CALL LIGHT WITHIN REACH.
[2022-06-22 07:33] LABS: BASOPHILS # (AUTO) 0.1 K/uL (0.00-0.22); BASOPHILS % (AUTO) 0.5 % (0.0-2.0); EOSINOPHILS # (AUTO) 0.3 K/uL (0-0.4); EOSINOPHILS % (AUTO) 2.7 % (0.0-4.0); HEMATOCRIT 32.6 % (36-52); HEMOGLOBIN 10.8 g/dL (12.0-18.0); LYMPHOCYTES # (AUTO) 1.1 K/uL (2.0-11.5); LYMPHOCYTES % (AUTO) 10.5 % (20.5-51.1); MEAN CORPUSCULAR HEMOGLOBIN 30 pg (27-31); MEAN CORPUSCULAR HGB CONC 33 g/dL (33-37); MONOCYTES # (AUTO) 0.8 K/uL (0.8-1.0); MONOCYTES % (AUTO) 7.9 % (1.7-9.3); NEUTROPHILS # (AUTO) 8.4 K/uL (1.8-7.7); NEUTROPHILS % (AUTO) 78.4 % (42.2-75.2); PLATELET COUNT (AUTO) 202 K/uL (140-450); RED BLOOD CELL COUNT(AUTO) 3.62 MIL/uL (4.20-6.10); RED CELL DISTRIBUTION WIDTH 14.8 % (11.6-13.7); WHITE BLOOD COUNT (AUTO) 10.7 K/uL (4.8-10.8)
[2022-06-22 07:52] LABS: ANION GAP 20.9 (8-16); CARBON DIOXIDE 25.5 mmol/L (21-32); POTASSIUM 5.4 mmol/L (3.5-5.1)
[2022-06-22 08:00] VITALS: BP 142/73
[2022-06-22 08:36] LABS: CREATININE 10.3 mg/dL (0.6-1.3)
[2022-06-22] MEDS: LOSARTAN 50 MG TAB PO SCH (09:22)
[2022-06-22] MEDS: PANTOPRAZOLE 40 MG INJ VIAL IVP SCH (09:23)
[2022-06-22] MEDS: hydrALAZINE 25 MG TAB PO SCH ×3 (09:23→16:19)
[2022-06-22] MEDS: DOCUSATE SODIUM 100 MG GELCAP PO SCH (09:24)
[2022-06-22] MEDS: NIFEdipine 60 MG TABER PO SCH (09:25)
[2022-06-22 12:00] VITALS: BP 138/70
[2022-06-22] MEDS: MORPHINE SULFATE 2 MG/ML SYR IVP PRN (12:12)
--- NOTE | 2022-06-22 13:29 | NUR ---
PHYSICAL THERAPY CO-SIGN The Physical Therapy Progress Notes documented by Electrical Solderer have been reviewed. Reviewed/Co-Signed by: Chanelle Coleman PT Documentation Done by:POLLO CUADRA CLIENT RELATIONS ASSOCIATE Addendum: 06/22/22 at 1329 by Chanelle Coleman PT Amended: Links added.
[2022-06-22 16:00] VITALS: BP 168/76
[2022-06-22 17:15] VITALS: BP 146/78
--- NOTE | 2022-06-22 18:30 | NUR ---
D/C HOME VIA WHEELCHAIR ACCOMPANIED BY PT STEVE PLUMMER. IN STABLE CONDITION. INFORMED CHARGE NURSE CRUZ.
== END 2022-06-22 18:30 | disposition home or self-care (01) | DRG 137 ==
LOC: MED 11:32 → MTU 16:19
PROC: 5A09357 Assistance with Respiratory Ventilation, Less than 24 Consecutive Hours, Continuous Positive Airway Pressure (ICD-10-PCS; 2022-06-12)
PROC: 0W993ZZ Drainage of Right Pleural Cavity, Percutaneous Approach (ICD-10-PCS; principal; 2022-06-20)
DX: J69.0 Pneumonitis due to inhalation of food and vomit (principal); N17.0 Acute kidney failure with tubular necrosis; J96.01 Acute respiratory failure with hypoxia; G93.41 Metabolic encephalopathy; D69.6 Thrombocytopenia, unspecified; D63.8 Anemia in other chronic diseases classified elsewhere; E83.39 Other disorders of phosphorus metabolism; I12.0 Hypertensive chronic kidney disease with stage 5 chronic kidney disease or end stage renal disease; N18.6 End stage renal disease; E83.41 Hypermagnesemia; E11.22 Type 2 diabetes mellitus with diabetic chronic kidney disease; E87.8 Other disorders of electrolyte and fluid balance, not elsewhere classified; E87.1 Hypo-osmolality and hyponatremia; D72.810 Lymphocytopenia; Z20.822 Contact with and (suspected) exposure to COVID-19; E11.65 Type 2 diabetes mellitus with hyperglycemia; I16.0 Hypertensive urgency; E87.5 Hyperkalemia; Z99.2 Dependence on renal dialysis; Z79.899 Other long term (current) drug therapy; J90 Pleural effusion, not elsewhere classified; M54.2 Cervicalgia; M54.6 Pain in thoracic spine
CPT/HCPCS: 36415; 36600; 70450; 71045; 72100; 72125; 76604; 76942; 80048; 80053; 82140; 82150; 82803; 82948; 83036; 83605; 83690; 83735; 83880; 84100; 84439; 84443; 84484; 85025; 85610; 85730; 87040; 87081; 93005; 94660; 96365; 96375; 97112; 97116; 97163-GP; 97530; 99285; C9113; J0360; J0696; J1630; J1644; J1815; J2001; J2270; J2405; J2543; J3490; J7060; J7644; Q0092